=== PATIENT | male | born 1980 | race Caucasian/White ===

== ENCOUNTER → 2018-03-16 06:40 | Outpatient (CLI) | payer BC, SELFPAY ==
--- NOTE | 2018-03-16 10:24 | NEURO ---
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 reports symptoms began about 5 months ago without trigger. he is healthy without a history of diabetes or significant etoh intake. 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 left upper extremity motor and sensory nerve conduction study is performed demonstrating diffusely decreased amplitude of the ulnar motor response which is non-localizable with increased latency across the elbow but relatively preserved conduction velocities. The ulnar amplitude at the palm is reduced. The median motor and sensory and radial sensory responses are normal. The ulnar f wave latency is prolonged compared to the median F wave latency. Left upper extremity needle electromyography is performed. Muscles evaluated included the first dorsal interosseous, abductor pollicis brevis, adductor pollicis longus, extensor indices proprius, brachioradialis, biceps, triceps and deltoid muscles. The first dorsal interosseous muscle did demonstrate mild increase in insertional activity with 1+ fibrillation potentials and positive sharp waves and mild large amplitude. All other muscles demonstrated normal insertional activity with absence of pathologic spontaneous activity. Motor unit potential recruitment pattern and amplitude was otherwise normal. 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
--- NOTE | 2018-03-16 10:34 | NEURO_ITS ---
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 reports symptoms began about 5 months ago without trigger. he is h ealthy without a history of diabetes or significant etoh intake. 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 left upper extremity motor and sensory nerve conduction study is performed demonstrating diffusely decreased amplitude of the ulnar motor response which is non-localizable with increased latency across the elbow but relatively preserved conduction velocities. The ulnar amplitude at the palm is reduced. The median motor and sensory and radial sensory responses are normal. The ulnar f wave latency is prolonged compared to the median F wave latency. Left upper extremity needle electromyography is performed. Muscles evaluated included the first dorsal interosseous, abductor pollicis brevis, adductor pollicis longus, extensor indices proprius, brachioradialis, biceps, triceps and deltoid muscles. The first dorsal interosseous muscle did demonstrate mild increase in insertional activity with 1+ fibrillation potentials and positive sharp waves and mild large amplitude. All other muscles demonstrated normal insertional activity with absence of pathologic spontaneous activity. Motor unit potential recruitment pattern and amplitude was otherwise normal. 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
--- OUTSIDE RECORDS SUMMARY | 2018-05-02 02:13 | XMS RPT_ITS ---
:1980 Author Organization [facility] Care Team Providers Name Role Phone GIUSEPPE JUNG Attending Unavailable GIUSEPPE JUNG Referring Unavailable GIUSEPPE ALLISON MD Attending Unavailable GIUSEPPE ALLISON MD Attending Unavailable Sim Pacheco Attending Sim Du Referring Unavailable Sim Pacheco Primary Care Unavailable PROBLEMS PROBLEMS No Problem Records FoundPROCEDURES PROCEDURES No Procedure Records FoundRESULTS RESULTS NCS AND/OR EMG Observed: 03/16/2018 Status: F Source: [place] [facility] 10:38 AM [facility] [place] Pulmonary Services/Neurology [address] [place] [address] MR#: [id number] Acct: [id number] Name: MANUEL NGUYEN Rep #: [id number] : 1980 37 From: Jovan Chung MD Referring Dr: Sim Pacheco MD Status: REG CLI Ordering Dr: Date: Location: [facility] Sex: M C NCS and/or EMG Patient Report Ordering Doctor: Sim Pacheco DATE OF SERVICE: 03/16/18 this is a left upper extremity emg and ncv performed on this 37 year old male with paresthesias in his left 4th and 5th digits, 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 reports symptoms began about 5 months ago without trigger. he is healthy without a history of diabetes or significant etoh intake. 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 left upper extremity motor and sensory nerve conduction study is performed demonstrating diffusely decreased amplitude of the ulnar motor response which is non-localizable with increased latency across the elbow but relatively preserved conduction velocities. The ulnar amplitude at the palm is reduced. The median motor and sensory and radial sensory responses are normal. The ulnar f wave latency is prolonged compared to the median F wave latency. Left upper extremity needle electromyography is performed. Muscles evaluated included the first dorsal interosseous, abductor pollicis brevis, adductor pollicis longus, extensor indices proprius, brachioradialis, biceps, triceps and deltoid muscles. The first dorsal interosseous muscle did demonstrate mild increase in insertional activity with 1+ fibrillation potentials and positive sharp waves and mild large amplitude. All other muscles demonstrated normal insertional activity with absence of pathologic spontaneous activity. Motor unit potential recruitment pattern and amplitude was otherwise normal. 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 03/16/18 1038 <Electronically signed by Jovan Chung MD> Date Jovan Chung MD CC: Sim Pacheco MD; Jovan Chung MD Date Dictated: 03/16/18 1024 Date Transcribed: 03/16/18 1024 Whipper: NF Signed PROGRESS Observed: 05/12/2017 Status: COMPLETED Source: [place] 9:48 AM [facility] REPOSITORY HNO ID: [id number] Author: Giuseppe Jung Service: (none) Author Type: Physician Type: Progress Notes Filed: 05/12/2017 9:48 AM Note Text: Normal urinanalysis. Fax to PCP Giuseppe Jung MD URINALYSIS WITH Collected: 05/11/2017 Status: F Source: [facility] 12:00 PM [facility] REPOSITORY TYPE CODE TESTS RESULT OUT OF RANGE REFERENCE UNITS LAB UCOL Yellow Color Yellow LAB [facility] Clear Clarity Abnormal Cloudy Alert LAB UGLUC Negative mg/dL Glucose, Urine Negative LAB UBIL Negative Bilirubin, Urine Negative LAB UKET Negative Ketones, Urine Negative LAB USPG 1.005-1.030 Specific [place], Ur 1.021 LAB UHGB Negative Hemoglobin/Blood, Negative Ur LAB UPH 4.5-8.0 pH 7.0 LAB UPROT Negative mg/dL Protein, Urine Negative LAB UUROB Normal Urobilinogen Normal LAB UNITR Negative Nitrites Negative LAB ULKEST Negative Leukest Negative LAB UCOM Comments SEE COMMENT Result Comment: N/A LAB UMCOM Urine SEE [place] Comment COMMENT Result Comment: N/A LAB UWBC 0-5 /HPF WBC 0-5 LAB URBC 0-3 /HPF RBC 0-3 Performed By: #### UAWMIC #### [facility] [address] [place], [place] [address] CNOV Observed: 05/06/2017 Status: COMPLETED Source: [place] 8:00 AM [facility] REPOSITORY Office Visit (GSTCON) ALEXYGRETCHENMANUEL ([id number]) 1980 M Date Time Provider Department 05/06/17 8:00 AM GIUSEPPE JUNG During your visit today, we recorded the following information about you: Pulse Blood pressure Weight Height 59/minute 135/89 91.4 kg 1.88 m Giuseppe Jung MD 05/06/2017 8:31 AM Signed REASON FOR CONSULT: Rectal Bleeding; Abdominal Pain; and narrowing of stools REQUESTING PHYSICIAN: SELF Phone: N/A Fax: Assessment ASSESSMENT AND PLAN #1 change in caliber of stool #2 polyuria #3 history of anal fissure, status post internal sphincterotomy These patient's complaints are similar to those that occurred 4 years ago. His been asked to avoid using non-water soluble Vaseline. I have also asked him to increase his daily fiber and offered Metamucil. No clear anal fissure was identified on today's exam. I do not feel that a repeat evaluation is warranted this time, including a colonoscopy. In the event his symptoms do not improve, and this could be considered. Given the short term complaints, I suspect possibly a resolving gastroenteritis. If complaints persist. A colonoscopy and/or referral to colorectal surgery again may be needed. A urinalysis was ordered today. HPI: Mr. Nguyen is a 36 year old male who presents for Rectal Bleeding; Abdominal Pain; and narrowing of stools. The patient's traveling from [facility]. The beginning of April the patient noted increasing frequency of urination. Noted a change in the caliber stool where it was narrowed. Pictures were provided. He's also noted occasional blood in toilet paper. Moves his bowels typically once or twice per day. Has had no history of travel, new medications, or any specific meal that may have made him sick. There is no abdominal pain, nausea, vomiting. In 2013 after traumatic injury to his anus, the patient develop an anal fissure for which she eventually underwent sigmoidoscopy, colonoscopy, and surgery including internal sphincterotomy by colorectal surgery PAST MEDICAL HISTORY: PAST MEDICAL HISTORY Diagnosis Date - NEGATIVE MEDICAL HISTORY TB,PN,DM,CA,Heart Dis PAST SURGICAL HISTORY: PAST SURGICAL HISTORY Procedure Laterality Date - COLONOSCOPY 03/09/13 - SIGMOIDOSCOPY FLEX DIAG 10/30/2011 Sigmoidoscopy, flexible FAMILY HISTORY: FAMILY HISTORY Problem Relation Age of Onset - Heart Mother - None Father - Colon Cancer No Family History or colon polyps SOCIAL HISTORY: Social History Substance Use Topics - Smoking status: Never Smoker - Smokeless tobacco: Never Used - Alcohol use Yes Comment: socially MEDICATIONS: Psyllium Seed-Sucrose (METAMUCIL, SUGAR,) powd Take 1 Tablespoonful by mouth twice daily with meals. CURRENT ALLERGIES: Allergies As of Date: 05/06/2017 (No Known Allergies) Fully Assessed 05/06/2017 Review of Systems: Gastrointestinal: Negative for-nausea, vomiting, heartburn, food sticking in throat, painful swallowing, vomiting blood, black stool, red blood in stool, abdominal pain, constipation, loss of appetite, early satiety (feeling full fast) and bloating. Positive for-diarrhea. Constitutional: Negative for-recent weight gain, recent weight loss, fever and fatigue. Positive for-none. HEENT: Negative for-Sore throat and hoarseness. Positive for-none. Cardiovascular: Negative for-abnormal heart rhythm, chest pain and palpitations. Positive for-none. Respiratory: Negative for-cough, shortness of breath on exertion, shortness of breath at rest and wheezing. Positive for-none. Genitourinary: Negative for-kidney failure/dialysis and painful urination. Positive for-frequent urination. Neurological: Negative for-seizures and headaches. Positive for-none. Dermatology: Negative for-RASH. Positive for-none. Musculoskeletal: Negative for-joint pain and arthritis. Positive for-none. Psychiatric: Negative for-dementia, depression and anxiety. Positive for-none. Where do you currently reside? Independently Are you taking any blood thinners? No OBJECTIVE PHYSICAL EXAM: BP 135/89 Pulse 59 Ht 6' 2ANDquot; (1.88m) Wt 201 lb 9.6 oz (91.4kg) BMI 25.87 kg/(m2). General appearance: well appearing, alert, in no acute distress, well-hydrated, well nourished HEENT: Anicteric, mucous membranes moist Skin: Skin color, texture, turgor normal Neck: Supple Lungs: lungs clear to auscultation, no wheezing or rhonchi Heart: RRR without murmur, gallop, or rubs. No ectopy Abdomen: Normal abdominal exam, Abdomen soft, non-tender. Bowel sounds normal. No masses, organomegaly Rectal exam: No clear fissures, hemorrhoids. Digital exam normal Extremities: Edema, none Musculoskeletal: Good range of motion Neuro: Gait normal. DATA: Diagnostic tests reviewed for today's visit: As above Attending Note: I have personally performed a face to face assessment of this Patient, which included an interview, physical exam and Assessment and Plan. I have reviewed and confirmed the history and lindsey findings as documented by the Supervisor Delivery Department and edited as appropriate. Signature: John Jung MD Date: 05/06/2017 Time: 7:33 AM Referring Provider: SELF [200] Allergies As of Date: 05/06/2017 (No Known Allergies) Date Reviewed: 05/06/2017 Reviewed by: Giuseppe Jung - Fully Assessed Reason for Visit: Rectal Bleeding [202] Abdominal Pain [1] narrowing of stools [Other] Primary Visit Diagnosis:Fissure, anal [K60.2] Other Visit Diagnosis:Polyuria [R35.8] Order(s):CONSULT TO COLO-RECTAL SURGERY [] Order #: [id number]: 1 Psyllium Seed-Sucrose (METAMUCIL, SUGAR,) powdTake 1 Tablespoonful by mouth twice daily with meals.Disp: Rfl: 0 UA DIP W/MICRO B/O [0351208] Order #: [id number] Prescriptions as of 05/06/2017 Sig: PSYLLIUM SEED (SUGAR) ORAL PO* Take 1 Tablespoonful by mouth* Medication notes this encounter NITROGLYCERIN 0.4 % (W/W) RECTAL OINTMENT >> Yousuf Monsalve MA 05/06/2017 7:31 AM >> YOUSUF MONSALVE MA May 06, 2017 7:31 AM Not using Problem List As Of Date 05/06/2017 Noted Resolved Abdominal pain, unspecified site [R10.9] INVALID FOR* Suprapubic pain [R10.2] INVALID FOR* Urgency of urination [R39.15] INVALID FOR* Frequency of urination [R35.0] INVALID FOR* Fissure, anal [K60.2] INVALID FOR* Fertility testing [Z31.41] INVALID FOR* Procreative management [Z31.9] INVALID FOR* Prescriptions ordered this encounter Disp Refills Start End PSYLLIUM SEED (SUGAR) ORAL POWDER 0 05/06/2017 Class: Med Update Route: ORAL Sig: Take 1 Tablespoonful by mouth twice daily with meals. Medications Discontinued During This Encounter nitroglycerin (RECTIV) 0.4 % (w/w) o* 1 Tu* 1 03/15/2013 05/06/2017 Sig: Use 1/2 pea size dose of ointment to affected area (anal fissure) twice daily Disc: Erroneous entry Cosign accepted by SILVINA WOODS MD[[id number]] on 04/20/2013 7:21 AM Disposition: Return if symptoms worsen or fail to improve. Follow-up and Disposition History Recorded Letter Text Encounter Status:Closed by GIUSEPPE JUNG MD on 05/06/17 PROGRESS Observed: 05/06/2017 Status: COMPLETED Source: [place] 7:[address] [facility] REPOSITORY O ID: [id number] Author: Giuseppe Jung Service: (none) Author Type: Physician Type: Progress Notes Filed: 05/06/2017 8:31 AM Note Text: REASON FOR CONSULT: Rectal Bleeding; Abdominal Pain; and narrowing of stools REQUESTING PHYSICIAN: SELF Phone: N/A Fax: Assessment ASSESSMENT AND PLAN #1 change in caliber of stool #2 polyuria #3 history of anal fissure, status post internal sphincterotomy These patient's complaints are similar to those that occurred 4 years ago. His been asked to avoid using non-water soluble Vaseline. I have also asked him to increase his daily fiber and offered Metamucil. No clear anal fissure was identified on today's exam. I do not feel that a repeat evaluation is warranted this time, including a colonoscopy. In the event his symptoms do not improve, and this could be considered. Given the short term complaints, I suspect possibly a resolving gastroenteritis. If complaints persist. A colonoscopy and/or referral to colorectal surgery again may be needed. A urinalysis was ordered today. HPI: Mr. Nguyen is a 36 year old male who presents for Rectal Bleeding; Abdominal Pain; and narrowing of stools. The patient's traveling from [facility]. The beginning of April the patient noted increasing frequency of urination. Noted a change in the caliber stool where it was narrowed. Pictures were provided. He's also noted occasional blood in toilet paper. Moves his bowels typically once or twice per day. Has had no history of travel, new medications, or any specific meal that may have made him sick. There is no abdominal pain, nausea, vomiting. In 2013 after traumatic injury to his anus, the patient develop an anal fissure for which she eventually underwent sigmoidoscopy, colonoscopy, and surgery including internal sphincterotomy by colorectal surgery PAST MEDICAL HISTORY: PAST MEDICAL HISTORY Diagnosis Date - NEGATIVE MEDICAL HISTORY TB,PN,DM,CA,Heart Dis PAST SURGICAL HISTORY: PAST SURGICAL HISTORY Procedure Laterality Date - COLONOSCOPY 03/09/13 - SIGMOIDOSCOPY FLEX DIAG 10/30/2011 Sigmoidoscopy, flexible FAMILY HISTORY: FAMILY HISTORY Problem Relation Age of Onset - Heart Mother - None Father - Colon Cancer No Family History or colon polyps SOCIAL HISTORY: Social History Substance Use Topics - Smoking status: Never Smoker - Smokeless tobacco: Never Used - Alcohol use Yes Comment: socially MEDICATIONS: Psyllium Seed-Sucrose (METAMUCIL, SUGAR,) powd Take 1 Tablespoonful by mouth twice daily with meals. CURRENT ALLERGIES: Allergies As of Date: 05/06/2017 (No Known Allergies) Fully Assessed 05/06/2017 Review of Systems: Gastrointestinal: Negative for-nausea, vomiting, heartburn, food sticking in throat, painful swallowing, vomiting blood, black stool, red blood in stool, abdominal pain, constipation, loss of appetite, early satiety (feeling full fast) and bloating. Positive for-diarrhea. Constitutional: Negative for-recent weight gain, recent weight loss, fever and fatigue. Positive for-none. HEENT: Negative for-Sore throat and hoarseness. Positive for-none. Cardiovascular: Negative for-abnormal heart rhythm, chest pain and palpitations. Positive for-none. Respiratory: Negative for-cough, shortness of breath on exertion, shortness of breath at rest and wheezing. Positive for-none. Genitourinary: Negative for-kidney failure/dialysis and painful urination. Positive for-frequent urination. Neurological: Negative for-seizures and headaches. Positive for-none. Dermatology: Negative for-RASH. Positive for-none. Musculoskeletal: Negative for-joint pain and arthritis. Positive for-none. Psychiatric: Negative for-dementia, depression and anxiety. Positive for-none. Where do you currently reside? Independently Are you taking any blood thinners? No OBJECTIVE PHYSICAL EXAM: BP 135/89 Pulse 59 Ht 6' 2 (1.88m) Wt 201 lb 9.6 oz (91.4kg) BMI 25.87 kg/(m2). General appearance: well appearing, alert, in no acute distress, well-hydrated, well nourished HEENT: Anicteric, mucous membranes moist Skin: Skin color, texture, turgor normal Neck: Supple Lungs: lungs clear to auscultation, no wheezing or rhonchi Heart: RRR without murmur, gallop, or rubs. No ectopy Abdomen: Normal abdominal exam, Abdomen soft, non-tender. Bowel sounds normal. No masses, organomegaly Rectal exam: No clear fissures, hemorrhoids. Digital exam normal Extremities: Edema, none Musculoskeletal: Good range of motion Neuro: Gait normal. DATA: Diagnostic tests reviewed for today's visit: As above Attending Note: I have personally performed a face to face assessment of this Patient, which included an interview, physical exam and Assessment and Plan. I have reviewed and confirmed the history and lindsey findings as documented by the Supervisor Delivery Department and edited as appropriate. Signature: John Jung MD Date: 05/06/2017 Time: 7:33 AM ALLERGIES ALLERGIES DATE TYPE / CODE NAME / CODE REACTION SEVERITY SOURCE 10/28/2014 Drug No Known Unknown [facility] Allergy/416 Allergies/[id number] [facility] 165075(SNOM 0388(RXNORM) Repository ED CT) Drug NO KNOWN [facility] Class/16337 ALLERGIES [address] [place] 1003(SNOMED Repository CT) ENCOUNTERS ENCOUNTERS ADMIT/DISCHARGE ACCOUNT NUMBER ADMITTING ENCOUNTER LOCATION SOURCE CLASS 04/11/2018 [id number] Ambulatory BBuilding:OP [facility] Repository 04/11/2018 [id number] Ambulatory BBuilding:OS [facility] Repository 03/16/2018 [id number] Ambulatory [facility] ding:PSN Repository 05/11/2017/05/11/19 [id number] Ambulatory [address] Repository 05/06/2017/05/06/19 [id number] Ambulatory [address] Repository PAYERS PAYERS ENCOUNTER GUARANTOR PAYER SUBSCRIBER SOURCE 03/16/2018 MANUEL Pop Primary MANUEL [id number] Insurance:ANTHEMPolic ROUCHDOB: [facility] [place]: [id number] [id number] Repository [address]Hmf: [phone] louis Date:[id number] [phone] () [address], [place] [address]AP: 03/16/2018 [facility]LF [facility] Number: Effective Repository Date:2017-12-20
== END ==
PROVIDERS: Family Provider Family Medicine; PCP Family Medicine; Referring Provider Family Medicine; Visit Provider Family Medicine
DX: G56.02 Carpal tunnel syndrome, left upper limb (principal)
CPT/HCPCS: 95886; 95910

== ENCOUNTER 2018-06-16 18:30 | Outpatient (RCR) | payer BC, SELFPAY ==
--- NOTE | 2018-05-18 08:02 | HP.PTEVAL ---
Patient's Visit Information MANUEL RING is a 37 year old M referred to Physical Therapy by SALLY Forman with a diagnosis of L unlar nerve lesion. Date of Evaluation: 05/18/18 Physical Therapist: Ayad Barraza PT, ATC - Visit Plan Frequency: 2x /Week Duration: 4 Weeks Plan: L wrist stretching and strengthening, DTR, scar message, and HEP - Subjective Findings: DOS: Pt reports he had surgery at the end of April of 2017 for an Ulnar nerve release. Pt reports he began to notice numbness in his L hand on the lateral 2 digits back in July of 2017. Pt reports this instance had an insidious onset. Pt reports the numbness has decreased as he is able to feel this ring finger now, but his pinky is still numb. Pt reports he also has had difficulty with gripping objects with his L hand as he has continually become more weak. 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 Pt reports he still feels the same since having his surgery. Pt reports he was in a plastic cast for 2 weeks after the surgery. Pt is under no limitations at this time other than to stop performing an activity if he experiences pain. Pt is R hand dominant. No sleep difficulty at this time secondary to pain. Pt is not limited with his normal daily acitivity. No pain this date. - Pain L elbow Pain Intensity (Out of 10): 0 Pain Intensity Range: 3 Comment: Pain only when he touches it - Objective aNeuro: B UE is WNL to light touch. B bicepital reflex= 2/3. Observation: Incision has healed well. No signs of infection. ROM: R wrist flex= 45, ext= 65; L wrist flex= 40, ext= 65 degrees. Fire Prevention Officer strength: R hand= 80 #/force, L hand= 65 #/force - Goals Goal 1:: Decrease L elbow pain x 50% to aid with IADL's Goal Time Frame: 4-6 Weeks Goal 2:: Increase L director of physical education strength x 10 pounds to aid with IADL's Goal Time Frame: 4-6 Weeks Goal 3:: I with HEP Goal Time Frame: 4-6 Weeks - Rehabilitation Potential Physical Therapy Diagnosis: Pt has L hand weakness and L elbow pain secondary to L ulnar nerve lesion Rehabilitation Potential: Good - Anticipated Interventions Patient/Client Instruction: Educate patient on: Condition, Plan of Care For the Purpose of:: To improve self management Therapeutic Exercise to Include: Strength training, Endurance training, Flexibilty training, Active ROM For the Purpose of:: To decrease pain, To increase ROM, To improve muscle performance and motor function Cryotherapy (ice pack, ice massage): Yes For the Purpose of:: To decrease pain Thank you for the opportunity to evaluate your patient. For Medicare and Medicare HMO plans, please review the plan of care and approve it. It will need to be FAXED BACK to us at [phone] for Medicare purposes. For Medicare only, by signing this I certify the plan of care. Please let me know if there are questions or concerns regarding this plan of care. Physician Signature: Date:
--- NOTE | 2018-06-16 18:58 | HP.PTDCSUM_ITS ---
HP - PT D/C Summary It has been my pleasure to treat MANUEL RING under orders from SALLY Forman, for the diagnosis of L unlar nerve lesion for a total of 8 visit(s). Discharge Date: Please see the following information for a summary of their discharge status. - Subjective Subjective: Pt reports he only hurts when he bangs his elbow - Pain L elbow Pain Intensity (Out of 10): 0 - Overall Improvement % Improvement: 100 - Objective Objective/Function: L elbow pain 0/10. 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 Thank you for the referral of this patient. Sincerely, Ayad Barraza, PT, ATC
== END 2018-06-16 19:00 | disposition home or self-care (01) ==
LOC: PT 18:30
PROVIDERS: Family Provider Family Medicine; PCP Family Medicine; Referring Provider Physician Assistant Surgical; Visit Provider Physician Assistant Surgical
DX: G56.22 Lesion of ulnar nerve, left upper limb (principal)
CPT/HCPCS: 97110; 97140; 97161; 97530

== ENCOUNTER 2019-03-29 12:23 | Emergency (ER) | payer BC, SELFPAY ==
[2019-03-29 12:24] VITALS: BP 141/75; PULSE 83; RESP 16; TEMP 36.3; BMI 25.7
--- NOTE | 2019-03-29 13:14 | ED.DCSUM_ITS ---
- ER Visit Summary Date of Service: 03/29/19 Chief Complaint: Abdominal pain History of Present Illness: The patient is a 38 M who presents with abdominal pain that began again today. Patient states the pain began suddenly when he woke up. Patient states the pain is aching. Patient states pain is diffuse across his abdomen. Patient states he had watery diarrhea today. Patient denies any melena or hematochezia. Patient states the pain gets better with burping. Patient states nothing makes it worse. Patient admits to nausea but denies any vomiting. Patient denies any hematemesis or coffee-ground emesis. Patient denies any dysuria or hematuria. Patient states she has had multiple episodes of this over the past 3 weeks. Patient states he is scheduled to see a word processing specialist on April 12. Physical Examination: Vital signs are stable. Patient is afebrile. Patient is in no acute distress. Oral mucosa is pink and moist. Neck is supple. Trachea is midline. There is no JVD. Heart was regular rate and rhythm. Lungs are clear and equal bilaterally. Abdomen is soft. Bowel sounds are normal. There is diffuse tenderness. There is no rebound or guarding noted. Cranial nerves II through XII are intact. There are no focal motor or sensory deficits noted. Skin is warm and dry. There is no rash noted. Test Results: CBC, comprehensive metabolic profile, and lipase were obtained and were all within normal limits. Emergency Department Course and Treatment: Patient was given Zofran and a GI cocktail here. Patient felt better on reevaluation. Patient was given a prescription for Prilosec. Patient was instructed to follow-up with his primary care physician and word processing specialist as scheduled. Patient understood and was agreeable with the plan. All questions were answered. Disposition: Discharge home Impression: 1. Gastroesophageal reflux disease 2. Diarrhea This note was generated with [employer] dictation software. It may contain incorrect words, spelling, and punctuation that were not noted in review of the chart prior to signing ED Disposition - Plan for ED Patient: Disposition: Home or Assisted Living Diagnosis: GERD (gastroesophageal reflux disease), Diarrhea Instructions: GERD (Adult), DIARRHEA, Viral (Child) (Adult) Prescriptions: Omeprazole [Prilosec] 20 mg PO DAILY #30 cap Prescription Printed Referrals: Sim Pacheco MD [STAFF PHYSICIAN] - 5-7 Days
[2019-03-29] MEDS: Mag Hydrox/Al Hydrox/Simeth 30 ML UDC PO (13:26)
[2019-03-29] MEDS: Ondansetron 4 MG/2 ML Vial IV (13:26)
[2019-03-29 13:29] VITALS: RESP 18; O2SAT 97
[2019-03-29 13:29] LABS: Absolute Lymphocyte Count 0.85 X10^3/uL (0.83-4.51); Absolute Neutrophil Count 8.9 X10^3/uL (2.0-7.7); Basophil# 0.02 X10^3/uL; Basophil% 0.2 % (0-1); Eosinophil# 0.07 X10^3/uL; Eosinophils% 0.7 % (0-5); Hematocrit 46.3 % (40-54); Hemoglobin 14.7 g/dL (13.0-16.5); Lymphocyte # 0.85 X10^3/ul (4.0); Lymphocyte % 8.2 % (19-41); Mean Corp Hgb Conc 31.7 g/dL (32-36); Mean Corpuscular Hgb 26.7 pg (27.0-32.0); Mean Platelet Vol. 9.5 fl (6.2-12.0); Monocyte# 0.54 X10^3/uL; Monocyte% 5.2 % (0-10); NRBC Flagged by Analyzer 0 % (0-5); Neutrophil # 8.85 X10^3/uL (2.7-7.7); Neutrophil % 85.3 % (47-70); Platelet Count 221 K/mm3 (150-450); RBC Distribution Width CV 13.2 % (11.6-14.6); Red Blood Count 5.51 M/mm3 (4.6-6.2); White Blood Count 10.4 K/mm3 (4.4-11.0)
[2019-03-29 13:44] LABS: ALB/GLOB Ratio 1.1 RATIO (0.9-2.4); AST(SGOT) 21 U/L (15-37); Alanine Aminotransfer ALT/SGPT 41 U/L (16-61); Albumin, Serum 3.8 g/dL (3.2-5.0); Alkaline Phosphatase 99 U/L (45-117); Anion Gap 5 (5-15); BUN 19 mg/dL (7-18); BUN/Creat Ratio 19.3 RATIO (10-20); Calcium,Total 9.1 mg/dL (8.5-10.1); Chloride 105 mmol/L (98-107); Creatinine, Serum 0.98 mg/dL (0.70-1.30); EST Glomerular Filtration Rate 91 mL/min (>60); Est Glom Filt Rate - Afr Amer 110 mL/min (>60); Estimated Creatinine Clearance 118.83 ml/min; Globulin 3.5 g/dL (2.2-4.2); Glucose 91 mg/dL (74-106); Lipase 119 U/L (73-393); Potassium 4.1 mmol/L (3.5-5.1); Protein, Total 7.3 g/dL (6.4-8.2); Sodium Level 139 mmol/L (136-145)
[2019-03-29 14:24] VITALS: BP 134/66; PULSE 59; RESP 17; O2SAT 98
== END 2019-03-29 14:25 | disposition home or self-care (01) ==
PROVIDERS: Emergency Provider Emergency Medicine
DX: K21.9 Gastro-esophageal reflux disease without esophagitis (principal); R19.7 Diarrhea, unspecified; J02.9 Acute pharyngitis, unspecified
CPT/HCPCS: 80053; 83690; 85025; 94760; 96374; 99284; J2405

== ENCOUNTER 2020-05-20 11:41 | Emergency (ER) | payer BC, SELFPAY ==
[2020-05-20 11:42] VITALS: BP 158/43; PULSE 53; RESP 16; TEMP 35.2; O2SAT 99; BMI 26.5
[2020-05-20 11:49] VITALS: BP 138/85; PULSE 53; RESP 15; O2SAT 99
--- NOTE | 2020-05-20 11:56 | EKG12_ITS ---
Test Reason : CP Blood Pressure : / mmHG Vent. Rate : 053 BPM Atrial Rate : 053 BPM P-R Int : 132 ms QRS Dur : 096 ms QT Int : 430 ms P-R-T Axes : 045 045 025 degrees QTc Int : 403 ms Sinus bradycardia with sinus arrhythmia Otherwise normal ECG Confirmed by JOEL DIANE, OLIVIA ([id number]), copy editor ROSEY CRUZ ([id number]) on 05/23/2020 1:34:11 PM Referred By: ADÁN Confirmed By:OLIVIA MALDONADO MD
--- NOTE | 2020-05-20 11:57 | ED.DCSUM_ITS ---
History of Present Illness Chief Complaint: Chest Pain Informant: Patient Narrative: 39-year-old male with no significant medical history presenting with chest pain. He states that started on Wednesday and has had intermittent episodes of palpitations. He denies lightheadedness or dizziness. He denies cough, fever, shortness of breath. Patient denies history of DVT/PE. Past Medical History - Allergies and Home Meds Allergies/Adverse Reactions: Allergies No Known Allergies Allergy (Verified 05/20/20 11:43) Primary Care Physician: Sim Pacheco MD [Primary Care Provider] - Prior records reviewed: Yes Past Medical History: - - She denies any significant medical history Surgical History: noncontributory Lives: Spouse/ Significant Other Smoking Status: Never smoker Alcohol: None Drugs: None Review of Systems General: Denies: Chills, Fever, Sweats Eyes: Denies: Visual changes - bilaterally, Diplopia ENT: Denies: Rhinorrhea, Sore throat Cardiovascular: Reports: Chest pain, Palpitations Respiratory: Denies: Dyspnea, Cough, Dyspnea on exertion Gastrointestinal: Denies: Abdominal pain, Nausea, Vomiting, Diarrhea, Melena, Hematochezia Genitourinary: Denies: Dysuria, Hematuria, Frequency Musculoskeletal: Denies: Back pain, Extremity Pain Skin: Denies: Rash, Wounds Neurological: Denies: Headache, Weakness, Numbness Psych: Denies: Depression, Anxiety Physical Exam Vital Signs/Narrative: Vital Signs Temp Pulse Resp BP Pulse Ox 05/20/20 11:49 53 L 15 138/85 H 99 05/20/20 11:42 95.3 F L 53 L 16 158/43 H 99 Inital Vital Signs reviewed: Yes General: Well nourished, No Acute Distress Head: Normocephalic, Atraumatic Eyes: Perrl, EOMI ENT: Moist mucous membranes, No rhinorrhea Cardiovascular: Regular rate, Regular rhythm, No murmurs Respiratory: No distress, CTA bilaterally Extremities: Nontender, No edema Skin: Normal color, No rash. Negative for: Cyanosis, Diaphoresis Neurological: Alert, Oriented x3, Cranial nerves II-XII grossly intact Psychological: Normal affect, Normal Mood Diagnostic/Tx/Re-eval - Rhythm Strip Rhythm Strip: Sinus Rhythm - EKG Initial EKG Interpretation: No Acute Injury Pattern, Sinus Bradycardia - Medical Decision Making 39-year-old male with no medical problems presenting with chest pain which has been present since Wednesday. He states he gets intermittent palpitations as well. He said it felt like his heart was pounding last night. Now he states it feels achy. Patient is PERC negative. EKG performed on arrival shows a sinus rhythm at 53 bpm without signs of ischemic change as interpreted by myself. Chest x- ray showed no acute cardiopulmonary process as interpreted by myself. Radiology does agree. Patient's lab work is unremarkable. Troponin is negative after chest pain all night so I do not believe he needs a delta troponin or EKG. Patient's heart score is 0. I believe patient is safe to be discharged home with follow-up with his primary care physician. Impression: 1. Chest pain ED Disposition - Plan for ED Patient: Disposition: Home or Assisted Living Instructions: ED Chest Pain, Uncertain Cause Referrals: Sim Pacheco MD [Primary Care Provider] -
--- NOTE | 2020-05-20 12:10 | RAD_ITS ---
STUDY: X-RAY CHEST REASON FOR EXAM: Male, 39 years old. Chest pain for weeks, worse today TECHNIQUE: Single AP portable view of the chest. COMPARISON: None. FINDINGS: EKG electrodes are seen. The lungs are clear and expanded. There is no demonstrated pleural abnormality. Normal size heart. Normal mediastinum and benjamin. Normal visualized pulmonary arteries. Normal visualized aortic arch and descending thoracic aorta. Normal visualized thoracic spine. Normal visualized ribs, clavicles, and shoulders. There is no demonstrated abnormality of the visualized soft tissue structures of the upper abdomen. RAD/Chest 1 View (Portable) IMPRESSION: Normal x-ray examination of the chest. Electronically Signed: Joseph Garcia MD at 12:37 EST , Service support ,
[2020-05-20 12:14] LABS: Absolute Lymphocyte Count 1.86 X10^3/uL (0.83-4.51); Absolute Neutrophil Count 3.8 X10^3/uL (2.0-7.7); Basophil# 0.03 X10^3/uL; Basophil% 0.5 % (0-1); Eosinophil# 0.04 X10^3/uL; Eosinophils% 0.6 % (0-5); Hematocrit 43.2 % (40-54); Hemoglobin 13.7 g/dL (13.0-16.5); Lymphocyte # 1.86 X10^3/ul (4.0); Mean Corp Hgb Conc 31.7 g/dL (32-36); Mean Corpuscular Hgb 26.8 pg (27.0-32.0); Mean Corpuscular Volume 84.4 fL (80-94); Mean Platelet Vol. 9.6 fl (6.2-12.0); Monocyte# 0.43 X10^3/uL; Monocyte% 6.9 % (0-10); NRBC Flagged by Analyzer 0 % (0-5); Neutrophil # 3.82 X10^3/uL (2.7-7.7); Neutrophil % 61.8 % (47-70); Platelet Count 245 K/mm3 (150-450); RBC Distribution Width SD 40.2 fl (35.1-43.9); Red Blood Count 5.12 M/mm3 (4.6-6.2); White Blood Count 6.2 K/mm3 (4.4-11.0)
[2020-05-20 12:33] LABS: Anion Gap 4 (5-15); BUN 19 mg/dL (7-18); BUN/Creat Ratio 19.4 RATIO (10-20); Chloride 108 mmol/L (98-107); Creatinine, Serum 0.98 mg/dL (0.70-1.30); EST Glomerular Filtration Rate 91 mL/min (>60); Est Glom Filt Rate - Afr Amer 110 mL/min (>60); Estimated Creatinine Clearance 117.66 ml/min; Glucose 92 mg/dL (74-106); Sodium Level 140 mmol/L (136-145)
[2020-05-20] MEDS: Aspirin 81 MG TAB.CHEW 324 MG PO (12:46)
[2020-05-20 12:47] VITALS: BP 133/87; PULSE 63; RESP 20; O2SAT 95
[2020-05-20 13:32] VITALS: BP 122/78; PULSE 48; RESP 17; O2SAT 98
[2020-05-20 13:58] VITALS: BP 122/78; PULSE 54; RESP 16; O2SAT 97
== END 2020-05-20 13:59 | disposition home or self-care (01) ==
PROVIDERS: Emergency Provider Student in an Organized Health Care Education/Training Program; PCP Family Medicine
DX: R07.9 Chest pain, unspecified (principal); R00.2 Palpitations
CPT/HCPCS: 71045; 80048; 84484; 85025; 93005; 99285; A4216

== ENCOUNTER → 2020-05-28 12:00 | Outpatient (CLI) | payer BC, SELFPAY ==
[2020-05-20 11:42] VITALS: BMI 26.5
[2020-05-28 15:58] LABS: Magnesium 2.3 mg/dL (1.6-2.6); Thyroid Stim Hormone (TSH) 1.99 uIU/mL (0.358-3.74)
== END ==
PROVIDERS: PCP Family Medicine; Referring Provider Family Medicine; Visit Provider Family Medicine
DX: R00.2 Palpitations (principal)
CPT/HCPCS: 36415; 83735; 84443

== ENCOUNTER → 2020-07-03 | Outpatient (CLI) | payer BC, SELFPAY | END | disposition home or self-care (01) | LOC: MFPLAB 13:40 → LABSPEC 13:41 | PROVIDERS: PCP Family Medicine; Referring Provider Family Medicine; Visit Provider Family Medicine | DX: B34.9 Viral infection, unspecified (principal) | CPT/HCPCS: 87635; U0002 ==

== ENCOUNTER 2021-08-11 19:24 | Emergency (ER) | payer BC, SELFPAY ==
[2021-08-11 19:25] VITALS: BP 136/81; PULSE 70; RESP 16; TEMP 36.2; O2SAT 98; BMI 25.7
[2021-08-11 20:17] VITALS: BP 124/83; PULSE 64
[2021-08-11 21:00] VITALS: BP 135/88; PULSE 65
--- NOTE | 2021-08-11 21:24 | ED.VIS.CHEST ---
HPI History of Present Illness Chief Complaint: Chest Pain Informant: patient Onset/Context/Timing Onset: Days (4) Activity at onset: gradual Timing: Continuous and Waxes and wanes Quality: Positive for Tightness Location: Left Chest Worsened By: Eating Relieved By: Nothing Associated Symptoms: Positive for Acid Reflux and Palpitations; Negative for Nausea, Vomiting, Diaphoresis, Dyspnea, Cough, Fever and Lightheadedness Narrative Narrative: Patient presents with chest pain that has been constant over the last 4 days. Patient states it has been waxing and waning. Patient describes as a tightness. Patient states it is over the left upper chest and radiates into his jaw and neck. Patient states it is worse with eating. Patient states nothing makes it better. Patient admits to some reflux symptoms as well as some palpitations. Patient denies any shortness of breath or cough. Patient denies any nausea or vomiting. Patient denies any diaphoresis. CVD Risk Factors: Negative for Hypertension, Diabetes, Hypercholesterolemia, Family History 1' </=55 and Smoking PE Risk Factors: Negative for Recent Travel/Surgery, Recent Immobilization, Prior DVT or PE, Cancer and OCP + Smoking + >/=35 PFSH PFSH Medical History no medical history no medical history Home Medications omeprazole 20 mg PO DAILY #30 capsule 08/11/21 [Rx Last Taken Unknown] Allergy/AdvReac Type Severity Reaction Status Date / Time No Known Allergies Allergy Verified 08/11/21 19:26 Social History Smoking Status: Never smoker ROS [facility] ED Constitutional Constitutional ED: Denies chills or fever(s) Eyes Eyes: Denies blurry vision or change in vision ENT ENT ED: Denies rhinorrhea or sore throat Cardiovascular Cardiovascular: Reports chest pain and palpitations Respiratory/Chest Respiratory/Chest: Denies cough or dyspnea Gastrointestinal Gastrointestinal: Denies abdominal pain, nausea or vomiting Genitourinary Genitourinary ED: Denies dysuria or hematuria Musculoskeletal Musculoskeletal: Reports neck pain; Denies back pain Integumentary Denies abscess or rash Neurologic Neurologic: Denies headache(s) or weakness Allergic/Immunologic Allergic/Immunologic ED: Denies mouth swelling or urticaria EXAM Physical Exam Const Vital Signs: 08/11/21 19:25 08/11/21 20:17 08/11/21 21:00 Temperature 97.2 F L Temperature Source Temporal Pulse Rate 70 64 65 Respiratory Rate 16 Respiratory Effort Normal Blood Pressure 136/81 H 124/83 H 135/88 H Blood Pressure Mean 99 96 103 Pulse Ox 98 Oxygen Delivery Method Room Air 08/11/21 21:33 08/11/21 22:22 08/11/21 22:23 Temperature 98.0 F Temperature Source Oral Pulse Rate 64 61 Respiratory Rate 18 18 Respiratory Effort Blood Pressure 120/87 H 120/87 H Blood Pressure Mean 98 98 Pulse Ox 98 97 97 Oxygen Delivery Method Room Air Room Air Room Air Positive well nourished and well developed General Appearance ED: well developed and NAD HEENT normocephalic and atraumatic Eyes PERRL and EOMs intact bilaterally Neck supple and no JVD Chest Wall palpation of chest normal Resp normal respiratory effort and clear to auscultation bilaterally Effort and Inspection: Negative for respiratory distress Cardio regular rate, regular rhythm and no murmurs GI normal to inspection, nondistended, normoactive bowel sounds, soft to palpation, non-tender and non-distended Extremity normal to inspection General Extremety ED: Negative for edema or tenderness General Extremity: Negative for edema Neuro oriented x3, CN's II-XII intact bilaterally and no sensory deficits noted Sensorium / Orientation: awake and alert Motor Exam: strength 5/5 throughout Psych mental status grossly normal Heart Score History: Moderately Suspicious ECG: Normal Age: </= 45 years Risk Factors: No Risk Factors Troponin: </= Normal Limit Score: 1 MDM MDM MDM Narrative Medical decision making narrative: Patient was given aspirin. EKG was obtained. On my interpretation, it showed a normal sinus rhythm with a rate of 65. DC interval, QRS interval, and QTc intervals were all normal. Cascilla was normal. There are no acute ST or T wave changes. Portable 1 view chest x-ray was obtained. On my interpretation, lung [place] are clear. There is normal cardiac silhouette. Bony thorax is normal. There is no acute process noted. Radiologist also interpreted the x-ray and agrees. CBC was within normal limits. Basic metabolic profile was within normal limits. High-sensitivity troponin was less than 3. Patient was given a GI cocktail here. Patient had improvement of his symptoms with this. Patient was given a prescription for Prilosec. Patient has a HEART score of 1. Patient was advised that this is low risk for acute cardiac event. Patient was instructed to follow-up with his primary care physician in 5 to 7 days. Patient understood and was agreeable with the plan. All questions were answered. Lab Data Attestation: I reviewed the patient's lab results. Labs: Laboratory Results - last 24 hr 08/11/21 08/11/21 21:05 21:29 WBC 8.7 RBC 5.00 Hgb 13.3 Hct 41.8 MCV 83.6 MCH 26.6 L MCHC 31.8 L RDW Std Deviation 41.5 RDW Coeff of Nadeen 13.6 Plt Count 244 MPV 9.4 Immature Gran % (Auto) 0.200 Neut % (Auto) 58.7 Lymph % (Auto) 31.7 [place] % (Auto) 7.7 Eos % (Auto) 1.1 Baso % (Auto) 0.6 Absolute Neuts (auto) 5.1 Absolute Lymphs (auto) 2.76 Nucleated RBC % 0 Sodium 141 Potassium 3.5 Chloride 108 H Carbon Dioxide 26.0 Anion Gap 7 BUN 15 Creatinine 0.86 Estim Creat Clear Calc 132.75 Est GFR (MDRD) Af Amer 126 Est GFR (MDRD) Non-Af 104 BUN/Creatinine Ratio 17.4 Glucose 86 Calcium 9.1 Troponin I High Sens < 3 L Radiography Chest X-Ray - ED: 1 View, Read by ED Physician, Read by Radiologist, Normal and No Acute Disease Diagnostic Testing: Clinical Impression(s) from Imaging Studies Chest X-Ray 08/11/21 21:46 IMPRESSION: Nonacute portable x-ray examination of the chest. Electronically Signed: Geovanni Garcia MD (Brooks) at 22:03 EDT Reading Location ID and State: [facility] / [place] , Service support , EKG Initial EKG: Attestation: I personally reviewed and interpreted this EKG as follows: Interpretation: Sinus Rhythm (65) and No Acute Injury Pattern Discharge Plan Triage Chief Complaint: Chest Pain ED Provider: Joaquín Vo Dx/Rx/DC Orders Clinical Impression: Chest pain, GERD (gastroesophageal reflux disease) Instructions: ED GERD (Adult) Prescriptions: New omeprazole [omeprazole] 20 MG capsule 20 mg PO DAILY Qty: 30 RF: 0 Primary Care Provider: Sim White Referrals: Sim White MD [Primary Care Provider] - 5-7 Days Disposition Disposition: Home, Self Care
--- NOTE | 2021-08-11 21:29 | EKG12_ITS ---
Test Reason : CP Blood Pressure : / mmHG Vent. Rate : 065 BPM Atrial Rate : 065 BPM P-R Int : 130 ms QRS Dur : 098 ms QT Int : 406 ms P-R-T Axes : 038 039 028 degrees QTc Int : 422 ms Normal sinus rhythm Normal ECG Confirmed by JOEL DIANE, OLIVIA ([id number]), videotape editor CAITLIN MIR ([id number]) on 08/13/2021 11:10:04 AM Referred By: LARRY Confirmed By:OLIVIA MALDONADO MD
[2021-08-11 21:33] VITALS: O2SAT 98
[2021-08-11 21:38] LABS: Absolute Lymphocyte Count 2.76 X10^3/uL (0.83-4.51); Absolute Neutrophil Count 5.1 X10^3/uL (2.0-7.7); Basophil# 0.05 X10^3/uL; Basophil% 0.6 % (0-1); Eosinophils% 1.1 % (0-5); Hematocrit 41.8 % (40-54); Hemoglobin 13.3 g/dL (13.0-16.5); Lymphocyte # 2.76 X10^3/ul (0.83-4.51); Lymphocyte % 31.7 % (19-41); Mean Corp Hgb Conc 31.8 g/dL (32-36); Mean Corpuscular Hgb 26.6 pg (27.0-32.0); Mean Corpuscular Volume 83.6 fL (80-94); Mean Platelet Vol. 9.4 fl (6.2-12.0); Monocyte# 0.67 X10^3/uL; Monocyte% 7.7 % (0-10); NRBC Flagged by Analyzer 0 % (0-5); Neutrophil # 5.12 X10^3/uL (2.7-7.7); Neutrophil % 58.7 % (47-70); Platelet Count 244 K/mm3 (150-450); RBC Distribution Width CV 13.6 % (11.6-14.6); RBC Distribution Width SD 41.5 fl (35.1-43.9); White Blood Count 8.7 K/mm3 (4.4-11.0)
[2021-08-11] MEDS: Aspirin 81 MG TAB.CHEW 324 MG PO (21:38)
[2021-08-11] MEDS: Mag Hydrox/Al Hydrox/Simeth 30 ML UDC PO (21:41)
--- NOTE | 2021-08-11 21:46 | RAD_ITS ---
STUDY: X-RAY CHEST REASON FOR EXAM: Male, 40 years old. chest pain TECHNIQUE: AP COMPARISON: None. FINDINGS: EKG leads project over the chest. The lungs are clear and expanded. There is no demonstrated pleural abnormality. Normal size heart. Normal mediastinum and benjamin. Normal visualized pulmonary arteries. Normal visualized aortic arch and descending thoracic aorta. Normal visualized thoracic spine. Normal visualized ribs, clavicles, and shoulders. There is no demonstrated abnormality of the visualized soft tissue structures of the upper abdomen. RAD/Chest 1 View (Portable) IMPRESSION: Nonacute portable x-ray examination of the chest. Electronically Signed: Geovanni Garcia MD (Brooks) at 22:03 EDT ,
[2021-08-11 22:01] LABS: Anion Gap 7 (5-15); BUN 15 mg/dL (7-18); BUN/Creat Ratio 17.4 RATIO (10-20); Calcium,Total 9.1 mg/dL (8.5-10.1); Chloride 108 mmol/L (98-107); Creatinine, Serum 0.86 mg/dL (0.70-1.30); EST Glomerular Filtration Rate 104 mL/min (>60); Est Glom Filt Rate - Afr Amer 126 mL/min (>60); Estimated Creatinine Clearance 132.75 ml/min; Glucose 86 mg/dL (74-106); Potassium 3.5 mmol/L (3.5-5.1); Sodium Level 141 mmol/L (136-145); Troponin-I HS (w/2H Reflex) < 3 pg/mL (3.0-78.0)
[2021-08-11 22:22] VITALS: BP 120/87; PULSE 64; RESP 18; O2SAT 97
[2021-08-11 22:23] VITALS: BP 120/87; PULSE 61; RESP 18; TEMP 36.7; O2SAT 97
[2021-08-11 23:35] LABS: Reflex Troponin-HS? (from REC) Y
== END 2021-08-11 23:47 | disposition home or self-care (01) ==
PROVIDERS: Emergency Provider Emergency Medicine; PCP Family Medicine; Visit Provider Emergency Medicine
DX: R07.9 Chest pain, unspecified (principal); K21.9 Gastro-esophageal reflux disease without esophagitis; R00.2 Palpitations; M54.2 Cervicalgia
CPT/HCPCS: 71045; 80048; 84484; 85025; 93005; 99285; A4216

== ENCOUNTER 2023-06-15 02:00 | Emergency (ER) | payer BC, SELFPAY ==
[2023-06-15 02:01] VITALS: BP 137/80; PULSE 79; RESP 12; TEMP 36.8; O2SAT 95; BMI 25.7
[2023-06-15 02:04] VITALS: BP 137/80; PULSE 79; RESP 12; TEMP 36.8; O2SAT 97
--- NOTE | 2023-06-15 02:25 | EDS_ITS ---
HPI History of Present Illness Chief Complaint: Nausea/Vomiting/Diarrhea Informant: patient Narrative Narrative: 42-year-old male presenting to the emergency room with nausea and diarrhea. Patient states since Wednesday has had a lot of gas burning epigastric pain he states he has been really unable to keep food down and he chokes on it/spits it up/vomits. He is scheduled for an EGD next week. No reported fevers. has been sick with strep throat recently. He takes omeprazole normally. He was unable to sleep tonight so he figured he should should be seen in the emergency department. He denies any chest pain or shortness of breath. He states he has recently had a negative colonoscopy. [facility] Medical History GERD (gastroesophageal reflux disease) Home Medications omeprazole 40 mg capsule,delayed release 40 mg PO DAILY 06/15/23 [History Last Taken 06/14/23 06:00] ondansetron 4 mg disintegrating tablet 4 mg PO Q6H PRN PRN Nausea #15 tabs 06/15/23 [Rx Last Taken Unknown] Allergy/AdvReac Type Severity Reaction Status Date / Time No Known Allergies Allergy Verified 06/15/23 02:04 Social History Smoking Status: Never smoker ROS ROS ED Constitutional Constitutional ED: Denies chills, fever(s) or weight loss Eyes Eyes: Denies change in vision or diplopia ENT ENT ED: Denies ear pain, rhinorrhea or sore throat Cardiovascular Cardiovascular: Denies chest pain, orthopnea, palpitations or racing heartbeat Respiratory/Chest Respiratory/Chest: Denies cough, dyspnea or orthopnea Gastrointestinal Gastrointestinal: Reports abdominal pain, diarrhea, nausea and vomiting Genitourinary Genitourinary ED: Denies dysuria, hematuria or urinary frequency Musculoskeletal Musculoskeletal: Denies arthralgias or myalgias Integumentary Denies abscess or rash Neurologic Neurologic: Denies headache(s) or weakness Psychiatric Psychiatric: Denies anxiety, depression, suicidal ideation or suicidal thoughts Endocrine Endocrinology: Denies polydipsia, polyphagia or polyuria Allergic/Immunologic Allergic/Immunologic ED: Denies mouth swelling, tongue swelling or urticaria EXAM Physical Exam Const Vital Signs: 06/15/23 02:01 06/15/23 02:04 06/15/23 03:04 Temperature 98.3 F 98.3 F 97.9 F Temperature Source Oral Oral Oral Pulse Rate 79 79 96 Respiratory Rate 12 12 18 Blood Pressure 137/80 H 137/80 H 136/77 H Blood Pressure Mean 99 99 96 Pulse Ox 95 97 97 Oxygen Delivery Method Room Air Room Air Room Air 06/15/23 04:04 Temperature 97.9 F Temperature Source Pulse Rate 86 Respiratory Rate 16 Blood Pressure 116/72 Blood Pressure Mean 86 Pulse Ox 99 Oxygen Delivery Method Positive well nourished and well developed General Appearance ED: well developed HEENT Reports normocephalic, head/scalp atraumatic and moist mucous membranes Eyes PERRL and EOMs intact bilaterally Neck no lymphadenopathy, supple and no JVD Resp normal respiratory effort and clear to auscultation bilaterally Cardio regular rate, regular rhythm and no murmurs GI normal to inspection, nondistended, normoactive bowel sounds and non-tender Palpation: soft Back/Spine no CVA tenderness and normal ROM Extremity normal to inspection General Extremety ED: Negative for edema General Extremity: Negative for edema Neuro oriented x3 and CN's II-XII intact bilaterally Sensorium / Orientation: alert Motor Exam: strength 5/5 throughout Psych mental status grossly normal Mood & Affect: Negative for depressed or tearful Skin no rashes or lesions noted and no wounds MDM MDM MDM Narrative Medical decision making narrative: IV established patient received IV fluids and a GI cocktail. Basic blood work showed a white count of 6.6 with no left shift hemoglobin of 13.8 platelet count of 207. Liver panel lipase BMP essentially normal. The patient most likely has a gastroenteritis complicated with underlying GERD. Would recommend that he continue his omeprazole and add in Mylanta as needed and I will write for Zofran . Advance diet as tolerated which I think should help him. He has his EGD next week. Differential includes but not limited to gastroenteritis pancreatitis C cholelithiasis/biliary colic peptic ulcer disease gastritis esophagitis perforated viscus electrolyte abnormalities viral illness History & Record Review Discussion w/independent historian: Patient Lab Data Attestation: I reviewed the patient's lab results. Labs: Laboratory Results - last 24 hr 06/15/23 02:35 WBC 6.6 RBC 5.43 Hgb 13.8 Hct 43.1 MCV 79.4 L MCH 25.4 L MCHC 32.0 RDW Std Deviation 40.3 RDW Coeff of Nadeen 14.0 Plt Count 207 MPV 8.8 Immature Gran % (Auto) 0.200 Neut % (Auto) 69.9 Lymph % (Auto) 19.8 [place] % (Auto) 9.0 Eos % (Auto) 0.5 Baso % (Auto) 0.6 Absolute Neuts (auto) 4.6 Absolute Lymphs (auto) 1.31 Nucleated RBC % 0 Sodium 139 Potassium 3.6 Chloride 109 H Carbon Dioxide 24.0 Anion Gap 6 BUN 16 Creatinine 0.84 Estim Creat Clear Calc 133.19 Est GFR (MDRD) Af Amer 129 Est GFR (MDRD) Non-Af 107 BUN/Creatinine Ratio 19.1 Glucose 106 Calcium 8.4 L Total Bilirubin 0.30 Direct Bilirubin 0.12 AST 20 ALT 29 Alkaline Phosphatase 85 Total Protein 6.5 Albumin 3.3 Globulin 3.2 Lipase 48 Discharge Plan Triage Chief Complaint: Nausea/Vomiting/Diarrhea ED Provider: Emigdio Anaya Dx/Rx/DC Orders Clinical Impression: Gastroenteritis, GERD (gastroesophageal reflux disease) Instructions: ED GERD (Adult), ED Gastroenteritis, Viral (Adult) Prescriptions: New ondansetron [ondansetron] 4 mg tablet,disintegrating 4 mg PO Q6H PRN PRN (Reason: Nausea) Qty: 15 0RF No Action omeprazole 40 mg capsule,delayed release(DR/EC) 40 mg PO DAILY Primary Care Provider: Sim White Referrals: Sim White MD [Primary Care Provider] - As Needed Disposition Disposition: Home, Self Care Discharge Date/Time: 06/15/23 04:07
[2023-06-15] MEDS: 0.9% Normal Saline (1000mL) 1,000 ML 1000 ML IV (02:33)
[2023-06-15] MEDS: Ondansetron 4 MG/2 ML Vial IV (02:34)
[2023-06-15] MEDS: Mag Hydrox/Al Hydrox/Simeth 30 ML UDC PO (02:34)
[2023-06-15 02:41] LABS: Absolute Lymphocyte Count 1.31 X10^3/uL (0.83-4.51); Absolute Neutrophil Count 4.6 X10^3/uL (2.0-7.7); Basophil# 0.04 X10^3/uL; Basophil% 0.6 % (0-1); Eosinophil# 0.03 X10^3/uL; Eosinophils% 0.5 % (0-5); Hematocrit 43.1 % (40-54); Hemoglobin 13.8 g/dL (13.0-16.5); Lymphocyte # 1.31 X10^3/ul (0.83-4.51); Lymphocyte % 19.8 % (19-41); Mean Corpuscular Hgb 25.4 pg (27.0-32.0); Mean Corpuscular Volume 79.4 fL (80-94); Mean Platelet Vol. 8.8 fl (6.2-12.0); NRBC Flagged by Analyzer 0 % (0-5); Neutrophil # 4.64 X10^3/uL (2.7-7.7); Neutrophil % 69.9 % (47-70); Platelet Count 207 K/mm3 (150-450); RBC Distribution Width SD 40.3 fl (35.1-43.9); Red Blood Count 5.43 M/mm3 (4.6-6.2); White Blood Count 6.6 K/mm3 (4.4-11.0)
[2023-06-15 03:04] VITALS: BP 136/77; PULSE 96; RESP 18; TEMP 36.6; O2SAT 97
[2023-06-15 03:09] LABS: AST(SGOT) 20 U/L (15-37); Alanine Aminotransfer ALT/SGPT 29 U/L (16-61); Albumin, Serum 3.3 g/dL (3.2-5.0); Alkaline Phosphatase 85 U/L (45-117); Anion Gap 6 (5-15); BUN 16 mg/dL (7-18); BUN/Creat Ratio 19.1 RATIO (10-20); Bilirubin, Direct 0.12 mg/dL (0.00-0.30); Calcium,Total 8.4 mg/dL (8.5-10.1); Chloride 109 mmol/L (98-107); Creatinine, Serum 0.84 mg/dL (0.70-1.30); EST Glomerular Filtration Rate 107 mL/min (>60); Est Glom Filt Rate - Afr Amer 129 mL/min (>60); Estimated Creatinine Clearance 133.19 ml/min; Globulin 3.2 g/dL (2.2-4.2); Glucose 106 mg/dL (74-106); Lipase 48 U/L (13-75); Potassium 3.6 mmol/L (3.5-5.1); Protein, Total 6.5 g/dL (6.4-8.2); Sodium Level 139 mmol/L (136-145)
--- OUTSIDE RECORDS SUMMARY | 2023-06-15 03:28 | XMS RPT_ITS | CCD ---
Author Name Unknown Address [address] [place] [address] Organization [facility] Care Team Providers Care Ostrich Farmer Name Role Phone LUIS ALLISON Unavailable Unavailable LUIS ALLISON Unavailable Unavailable Rudy Moran Primary Care Provider uRdy Moran MD Primary Care Provider [phone] Rudy Moran MD Primary Care Provider [phone] SONJA ACEVES Referring Unavailable RUDY MORAN Primary Care Unavailable Unavailable Primary Care Provider UnavailRudy Pearson MD Primary Care Provider [phone] RUDY MORAN Primary Care Unavailable ERI LLAMAS Referring Unavailable RUDY MORAN Primary Care Unavailable ERI LLAMAS Attending Unavailable SELF Referring Unavailable RUDY MORAN Primary Care Unavailable SELF Referring Unavailable ERI LLAMAS Attending Unavailable FARHAD ERI Attending Unavailable FARHAD ERI Referring Unavailable LLAMSA ERI Referring Unavailable NEDA BORREGO Attending Unavailable Medications Current Medications Medication Drug Class(es) Dates Sig (Normalized) Sig (Original) acetaminophen 325 mg / oxyCODONE hydrochloride 5 mg oral tablet (1 source) Opioid Agonist Start: 05-05-2019 End: 05-12-2019 oxyCODONE-acetamino phen (PERCOCET) 5-325 MG per tablet Indications: S/P cubital tunnel release Take 1 tablet by mouth every 6 hours as needed for Pain for up to 7 days. Intended supply: 7 days. Take lowest dose possible to manage pain 28 tablet 0 05/05/2019 05/12/2019 Active calcium chloride 0.0014 meq/ml / potassium chloride 0.004 meq/ml / sodium chloride 0.103 meq/ml / sodium lactate 0.028 meq/ml injectable solution (1 source) Start: 05-05-2019 lactated ringers infusion 1 ml diphenhydrAMINE hydrochloride 50 mg/ml cartridge (1 source) Histamine-1 Receptor Antagonist Start: 05-05-2019 End: 05-05-2019 diphenhydrAMINE (BENADRYL) injection 12.5 mg 2 ml fentaNYL 0.05 mg/ml injection (1 source) Opioid Agonist Start: 05-05-2019 fentaNYL (SUBLIMAZE) injection 100 mcg 1 ml hydrALAZINE hydrochloride 20 mg/ml injection (1 source) Arteriolar Vasodilator Start: 05-05-2019 hydrALAZINE (APRESOLINE) injection 5 mg hydrocortisone 25 mg/ml topical cream (1 source) Corticosteroid Start: 01-28-2023 End: 02-07-2023 hydrocortisone (ANUSOL-HC) 2.5 % rectal cream Indications: Rectal bleeding by RECTAL route two times a day for 10 days. 28 g 1 01/28/2023 02/07/2023 Active Completed/Discontinued Medications Medication Drug Class(es) Dates Sig (Normalized) Sig (Original) acetaminophen 500 mg oral tablet (1 source) Start: 05-05-2019 End: 05-05-2019 acetaminophen (TYLENOL) tablet 1,000 mg ceFAZolin (ANCEF) 2 g in dextrose 5 % 100 mL IVPB (1 source) Start: 05-05-2019 End: 05-05-2019 ceFAZolin (ANCEF) 2 g in dextrose 5 % 100 mL IVPB dexamethasone sod phos-bupiv (TAP) syringe 30 mL (1 source) Start: 05-05-2019 End: 05-05-2019 dexamethasone sod phos-bupiv (TAP) syringe 30 mL famotidine 20 mg oral tablet (1 source) Histamine-2 Receptor Antagonist Start: 05-05-2019 End: 05-05-2019 famotidine (PEPCID) tablet 20 mg hyoscyamine sulfate 0.125 mg sublingual tablet (2 sources) Start: 04-12-2019 take 0.125 mg under the tongue every six hours as needed hyoscyamine sublingual (LEVSIN SL) 0.125 mg subl Dissolve 1 tablet under the tongue four times daily as needed (abdominal pain). 20 tablet 2 04/12/2019 Active Problems Active Problems Problem Classification Problem Date Documented Da te Episodic/Chronic Esophageal disorders (3 sources) Gastroesophageal reflux disease; Translations: [Gastro-esophageal reflux disease without esophagitis] Onset: 01-28-2023 Chronic Other gastrointestinal disorders (2 sources) Anismus; Translations: [Other specified symptoms and signs involving the digestive system and abdomen] Episodic Other gastrointestinal disorders (1 source) Abdominal bloating; Translations: [Abdominal distension (gaseous)] 05-27-2023 Episodic Viral infection (1 source) Enteroviral vesicular stomatitis with exanthem; Translations: [Enteroviral vesicular stomatitis with exanthem] 12-04-2022 Episodic Past or Other Problems Problem Classification Problem Date Documented Da te Episodic/Chronic Abdominal pain (12 sources) Abdominal pain; Translations: [Unspecified abdominal pain] Onset: 10-30-2011 10-30-2011 Episodic Anal and rectal conditions (6 sources) Anal fissure; Translations: [Anal fissure, unspecified] Onset: 03-15-2013 03-15-2013 Episodic Contraceptive and procreative management (13 sources) Patient encounter status; Translations: [Encounter for fertility testing] Onset: 03-28-2014 03-28-2014 Episodic Gastrointestinal hemorrhage (2 sources) Rectal hemorrhage; Translations: [Hemorrhage of anus and rectum] Onset: 12-02-2022 01-28-2023 Episodic Genitourinary symptoms and ill-defined conditions (13 sources) Urgent desire to urinate; Translations: [Urgency of urination] Onset: 10-19-2012 10-19-2012 Episodic Other gastrointestinal disorders (1 source) Other specified symptoms and signs involving the digestive system and abdomen; 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] Onset: 03-31-2022 Episodic Other gastrointestinal disorders (1 source) Diarrhea, unspecified; Translations: [Diarrhea, unspecified type] Onset: 12-02-2022 Episodic Residual codes; unclassified (1 source) History of decompression of ulnar nerve Episodic Results Test Name Value Interpretation Reference Range Facil ity Vital Signs Date Time Vital Sign Value Performing Clinician Audi ascencio 12-04-2022 17:24-0400 Body temperature 97.2 [degF] Sachin Pastor MD Work Phone: [facility] 12-04-2022 17:24-0400 Body weight 93.53 kg Sachin Pastor MD Work Phone: [facility] 12-04-2022 17:24-0400 Diastolic blood pressure 82 mm[Hg] Sachin Pastor MD Work Phone: [facility] 12-04-2022 17:24-0400 Heart rate 68 /min Sachin Pastor MD Work Phone: [facility] 12-04-2022 17:24-0400 Respiratory rate 18 /min Sachin Pastor MD Work Phone: [facility] 12-04-2022 17:24-0400 SaO2% (BldA) [Mass fraction] 100 % Sachin Pastor MD Work Phone: [facility] 12-04-2022 17:24-0400 Systolic blood pressure 134 mm[Hg] Sachin Pastor MD Work Phone: [facility] 05-05-2019 17:24-0500 Body temperature 97.7 [degF] Toni Martinez MD Work Phone: [facility] Work Phone: 05-05-2019 17:24-0500 Diastolic blood pressure 95 mm[Hg] Toni Martinez MD Work Phone: [facility] Work Phone: 05-05-2019 17:24-0500 Heart rate 66 /min Toni Martinez MD Work Phone: [facility] Work Phone: 05-05-2019 17:24-0500 Respiratory rate 14 /min Toni Martinez MD Work Phone: [facility] Work Phone: 05-05-2019 17:24-0500 SaO2% (BldA) [Mass fraction] 96 % Toni Martinez MD Work Phone: [facility] Work Phone: 05-05-2019 17:24-0500 Systolic blood pressure 136 mm[Hg] Toni Martinez MD Work Phone: [facility] Work Phone: 05-05-2019 12:38-0500 Body height 188 cm Toni Martinez MD Work Phone: [facility] Work Phone: 05-05-2019 12:38-0500 Body mass index (BMI) [Ratio] 24.97 kg/m2 Toni Martinez MD Work Phone: [facility] Work Phone: 05-05-2019 12:38-0500 Body weight 88.22 kg Toni Martinez MD Work Phone: [facility] Work Phone: Encounters Encounter Date Encounter Type Care Provider Facility Start: 05-27-2023 End: 05-27-2023 ambulatory SELF Facility:[facility] Start: 05-27-2023 End: 05-27-2023 ambulatory Eri Llamas PA-C Work Phone: [facility] [place] Procedures Date Procedure Procedure Detail Performing Clinician Start: 12-30-2022 Colonoscopy Eri Llamas PA-C Work Phone: Start: 03-16-2022 Urnls dip stick/tabl et rgnt auto w/o microscopy Sonja Aceves PA-C Work Phone: Start: 10-21-2020 Us retroperitoneal r eal time w/image complete Celina Pringle EDUCATIONAL ADVISOR.METEOROLOGICAL ENGINEER, DNP Work Phone: Start: 05-05-2019 OPERATIVE REPORT 3m Sca nning Start: 05-01-2019 Colonoscopy Sonja guerrero PA-C Work Phone: Plan of Treatment Date Care Activity Detail Author Start: 2030 Shingles Vaccine (1 of 2) Shingles Vaccine [place]1 of 2[place] Start: 12-31-2027 Colonoscopy Colonoscopy [facility] Start: 12-31-2027 Colorectal Cancer Screening Colorectal Cancer Screening [facility] Start: 12-31-2027 Screening for malignant neoplasm of colon [facility] Start: 2025 FECAL OCCULT BLOOD FECAL OCCULT BLOOD [facility] Start: 2025 Screening for malignant neoplasm of colon [facility] Start: 2025 SIGMOIDOSCOPY SIGMOIDOSCOPY [facility] Start: 10-28-2024 DTaP/Tdap/Td vaccine (2 - Td) DTaP/Tdap/Td vaccine (2 - Td) [facility] Work Phone: Start: 10-28-2024 Urine microalbumin profile DTaP,Tdap,Td Vaccine (2 - Td or Tdap) [facility] Start: 05-01-2024 Colonoscopy COLONOSCOPY [facility] Start: 05-01-2024 COLORECTAL CANCER SCREENING COLORECTAL CANCER SCREENING [facility] Start: 04-05-2023 Depression Assessment Depression Assessment [facility] Start: 12-04-2022 Covid-19 Vaccine () Covid-19 Vaccine () [facility] Start: 12-04-2022 Influenza vaccination [facility] Start: 04-05-2022 DEPRESSION ASSESSMENT DEPRESSION ASSESSMENT [facility] Start: 04-05-2021 DEPRESSION ASSESSMENT DEPRESSION ASSESSMENT [facility] Start: 10-03-2020 COVID-19 VACCINE (3 - Booster for Moderna series) COVID-19 VACCINE (3 - Booster for Moderna series) [facility] Start: 10-03-2020 COVID-19 VACCINE (3 - Moderna series) COVID-19 VACCINE (3 - Moderna series) [facility] Start: 06-19-2019 End: 06-19-2019 Office Visit 06/19/2019 Office Visit Orthopedic Surgery Toni Martinez MD [address] [place] [address] [phone] [facility] [place] Start: 05-15-2019 End: 05-15-2019 Patient encounter procedure 05/15/2019 Office Visit Orthopedic Surgery Julianne Crabtree PA [address] [place] [address] [phone] [facility] [place] Start: 12-04-2018 Influenza vaccination Flu vaccine (#1) [facility] Work Phone: Start: 12-01-2015 Lipid 1996 panel - Serum or Plasma Lipid Screening [facility] Start: 12-01-2015 Lipid panel Lipid Screening [facility] Start: 12-01-2015 LIPID SCREEN LIPID SCREEN [facility] Start: 12-01-1999 Urine microalbumin profile DTAP,TDAP,TD (1 - Tdap) [facility] Start: 1998 HEPATITIS C SCREENING HEPATITIS C SCREENING [facility] Start: 1998 Hepatitis C screening Hepatitis C Screening [facility] Start: 1998 HIV SCREENING HIV SCREENING [facility] Start: 1998 HIV screening HIV Screening [facility] Start: 12-01-1995 HIV screen HIV screen [facility] Work Phone: Start: 1981 Varicella vaccine (1 of 2 - 2-dose childhood series) Varicella vaccine (1 of 2 - 2-dose childhood series) [facility] Work Phone: Start: 1980 HEPATITIS B (1 of 3 - 3-dose series) HEPATITIS B (1 of 3 - 3-dose series) [facility] Start: 1980 Hepatitis B Vaccine (1 of 3 - 3-dose series) Hepatitis B Vaccine (1 of 3 - 3-dose series) [facility] End: 05-27-2024 EGD DIAGNOSTIC EGD DIAGNOSTIC Endoscopy Routine Gastroesophageal reflux disease, unspecified whether esophagitis present Bloating 1 Occurrences starting 05/27/2023 until 05/27/2024 [facility] Work Phone: Immunizations Immunization Date Immunization Notes Care Provider Fa juanita 01-14-2022 influenza virus vacc ine, unspecified formulation Eri Llamas PA-C Work Phone: [facility] Payers Date Payer Category Payer Unknown BCBS BCBS OUT OF STATE xxxxxxxxxxxxxxx 2018-Present [address] [place] [address] xxxxxxxxxxxxxxx [id number] 2016 Unknown [employer] CARD PPO OOS [id number] 2016-Present [phone] [address] [place] [address] PPO .[id number] 2016 Unknown [id number] Social History Date Type Detail Facility Start: 05-15-2019 End: 12-02-2022 Tobacco smoking status NHIS Never smoker [facility] Start: 05-05-2019 Alcohol Comment socially, rare [facility] Work Phone: Start: 1980 Sex Assigned At Not on file S [facility] Work Phone: Start: 05-06-2017 End: 12-02-2022 Tobacco use and exposure Smokeless tobacco non-user [facility] Start: 10-15-2020 End: 04-08-2021 Alcohol intake Current drinker of alcohol (finding) [facility] Start: 06-02-2013 [facility] socially [facility] Start: 12-04-2022 End: 05-05-2023 Alcohol intake Ex-drinker (finding) [facility] Start: 12-02-2022 End: 12-04-2022 History of Social function [facility] Start: 12-02-2022 End: 12-04-2022 Tobacco use panel [facility] National Score (1-100), lower number is lower risk 65 [facility] Start: 12-02-2022 Alcohol Comment socially- pt h asn't drank in the last 2 years [facility] Start: 09-21-2020 End: 10-21-2020 Exposure to SARS-CoV-2 (event) Not sure [facility] Clinical Notes 05-05-2019 to 05-27-2023 Patient Eri Reynolds PA-C - 05/27/2023 9:30 AM Eri Noriega PA-C - 01/28/2023 7:30 AM EDTPatient Sachin Paris MD - 12/04/2022 5:29 PM EDTInstructions Note Date & Type Note Facility 05-27-2023 Note HNO ID: [id number] Author: ERI LLAMAS PA-C Service: ? Author Type: Physician Airplane First Officer Type: Progress Notes Filed: 05/27/2023 09:31 Note Text: This is a virtual visit using [employer] Video Visit. It required patient-provider interaction for the medical decision making as documented below. I have communicated my name and active licensure. The patient's identity and physical location were verified at the time of this visit. Either the patient or their legal aircraft sales representative has been informed of the risks and benefits of -- and alternatives to -- treatment through a remote evaluation and consents to proceed with the evaluation remotely. Kaiser Ring is a 42 year old male seen for f/u GERD. Patient tells me that he is doing okay today. Still with GERD symptoms despite Omeprazole. He was trying to skip a day but would get severe GERD symptoms including bloating. No nausea or vomiting. No dysphagia but will have a sore throat. Appetite is good. Bowel movements are regular. No rectal bleeding recently. Last OV with me 01/28/2023: Assessment/Plan (K21.9) Gastroesophageal reflux disease, unspecified whether esophagitis present (primary encounter diagnosis) (K62.5) Rectal bleeding 1. Gastroesophageal reflux disease, unspecified whether esophagitis present -- Patient with more GERD recently. -- Start Omeprazole 40 mg daily Recommend high protein, high fiber diet. Promotion of salivation through oral lozenges/chewing gum Drink plenty of water Avoid NSAIDs (such as Advil, Ibuprofen, Excedrin, Mobic), tobacco, alcohol, carbonated beverages, caffeine, chocolate, tomato based sauces, spicy/fatty foods, and peppermint Avoid eating less than 3 hours before bed. Elevate the head of the bed 6 inches, or invest in a wedge pillow. Laying on left side with head elevated may help alleviate reflux symptoms. - omeprazole (PRILOSEC) 40 mg capsule; Take 1 capsule by mouth once daily. Dispense: 30 capsule; Refill: 3 2. Rectal bleeding -- Discussed colonoscopy in detail today. Still with rectal bleeding intermittently. -- Start Anusol cream BID x10 days. - hydrocortisone (ANUSOL-HC) 2.5 % rectal cream; by RECTAL route two times a day for 10 days. Dispense: 28 g; Refill: 1 Follow up in office 3 months/PRN. HISTORY REVIEWED (electronic chart updated): PAST MEDICAL HISTORY Diagnosis Date GERD (gastroesophageal reflux disease) NEGATIVE MEDICAL HISTORY TB,PN,DM,CA,Heart Dis PAST SURGICAL HISTORY Procedure Laterality Date COLONOSCOPY 03/09/2013 COLONOSCOPY 05/01/2019 COLONOSCOPY SCREENING 12/30/2022 hyperplastic polyp splenic flexure, focal active colitis EGD W/O [facility] SPEC VARICIES INJ 05/01/2019 ESOPHAGOGASTRODUODENOSCOPY TRANSORAL DIAGNOSTIC 05/01/2019 EGD SIGMOIDOSCOPY FLX DX W/COLLJ SPEC BR/WA IF PFRMD 10/30/2011 Sigmoidoscopy, flexible FAMILY HISTORY Problem Relation Age of Onset Heart Mother None Father Colon Cancer No Family History or colon polyps Social History Tobacco Use Smoking status: Never Smokeless tobacco: Never Substance Use Topics Alcohol use: Not Currently Comment: socially- pt hasn't drank in the last 2 years Drug use: No Current Outpatient Medications Medication Sig omeprazole (PRILOSEC) 40 mg capsule TAKE 1 CAPSULE BY MOUTH EVERY DAY No current facility-administered medications for this visit. Facility-Administered Medications Ordered in Other Visits Medication Dose Route Frequency lidocaine (PF) 10 mg/mL (1 %) 1-2 mg injection (XYLOCAINE) 0.1-0.2 mL INTRADERMAL PRN NaCl 0.9% iv infusion 30 mL/hr INTRAVENOUS CONTINUOUS ALLERGIES No Known Allergies REVIEW OF SYSTEMS: Review of Systems Gastrointestinal: Positive for heartburn. Negative for abdominal pain, blood in stool, diarrhea, nausea and vomiting. Bloating PHYSICAL EXAMINATION: VIDEO EXAM: (if completed, performed via video enabled technology) Unable to connect to the video. Assessment/Plan (K21.9) Gastroesophageal reflux disease, unspecified whether esophagitis present (primary encounter diagnosis) (R14.0) Bloating 1. Gastroesophageal reflux disease, unspecified whether esophagitis present -- Patient with GERD symptoms despite Omeprazole. Tried to taper off it with worsening GERD, bloat. -- Would like to keep him on Omeprazole 40 mg, does not need refills -- Plan for repeat EGD Recommend high protein, high fiber diet. Promotion of salivation through oral lozenges/chewing gum Drink plenty of water Avoid NSAIDs (such as Advil, Ibuprofen, Excedrin, Mobic), tobacco, alcohol, carbonated beverages, caffeine, chocolate, tomato based sauces, spicy/fatty foods, and peppermint Avoid eating less than 3 hours before bed. Elevate the head of the bed 6 inches, or invest in a wedge pillow. Laying on left side with head elevated may help alleviate reflux symptoms. - EGD DIAGNOSTIC; Future 2. Bloating -- Patient with GERD symp (more content not included)... [facility] 05-27-2023 Instructions Eri Llamas PA-C - 05/27/2023 9:31 AM EST Recommend high protein, high fiber diet. Promotion of salivation through oral lozenges/chewing gum Drink plenty of water Avoid NSAIDs (such as Advil, Ibuprofen, Excedrin, Mobic), tobacco, alcohol, carbonated beverages, caffeine, chocolate, tomato based sauces, spicy/fatty foods, and peppermint Avoid eating less than 3 hours before bed. Elevate the head of the bed 6 inches, or invest in a wedge pillow. Laying on left side with head elevated may help alleviate reflux symptoms. documented in this encounter [facility] 05-27-2023 History of Presen t illness Narrative This is a virtual visit using [employer] Zoom Video Visit. It required patient-provider interaction for the medical decision making as documented below. I have communicated my name and active licensure. The patient's identity and physical location were verified at the time of this visit. Either the patient or their legal aircraft sales representative has been informed of the risks and benefits of -- and alternatives to -- treatment through a remote evaluation and consents to proceed with the evaluation remotely. Kaiser Ring is a 42 year old male seen for f/u GERD. Patient tells me that he is doing okay today. Still with GERD symptoms despite Omeprazole. He was trying to skip a day but would get severe GERD symptoms including bloating. No nausea or vomiting. No dysphagia but will have a sore throat. Appetite is good. Bowel movements are regular. No rectal bleeding recently. Last OV with me 01/28/2023: Assessment/Plan (K21.9) Gastroesophageal reflux disease, unspecified whether esophagitis present (primary encounter diagnosis) (K62.5) Rectal bleeding 1. Gastroesophageal reflux disease, unspecified whether esophagitis present -- Patient with more GERD recently. -- Start Omeprazole 40 mg daily Recommend high protein, high fiber diet. Promotion of salivation through oral lozenges/chewing gum Drink plenty of water Avoid NSAIDs (such as Advil, Ibuprofen, Excedrin, Mobic), tobacco, alcohol, carbonated beverages, caffeine, chocolate, tomato based sauces, spicy/fatty foods, and peppermint Avoid eating less than 3 hours before bed. Elevate the head of the bed 6 inches, or invest in a wedge pillow. Laying on left side with head elevated may help alleviate reflux symptoms. - omeprazole (PRILOSEC) 40 mg capsule; Take 1 capsule by mouth once daily. Dispense: 30 capsule; Refill: 3 2. Rectal bleeding -- Discussed colonoscopy in detail today. Still with rectal bleeding intermittently. -- Start Anusol cream BID x10 days. - hydrocortisone (ANUSOL-HC) 2.5 % rectal cream; by RECTAL route two times a day for 10 days. Dispense: 28 g; Refill: 1 Follow up in office 3 months/PRN. HISTORY REVIEWED (electronic chart updated): PAST MEDICAL HISTORY Diagnosis Date GERD (gastroesophageal reflux disease) NEGATIVE MEDICAL HISTORY TB,PN,DM,CA,Heart Dis PAST SURGICAL HISTORY Procedure Laterality Date COLONOSCOPY 03/09/2013 COLONOSCOPY 05/01/2019 COLONOSCOPY SCREENING 12/30/2022 hyperplastic polyp splenic flexure, focal active colitis EGD W/O [facility] SPEC VARICIES INJ 05/01/2019 ESOPHAGOGASTRODUODENOSCOPY TRANSORAL DIAGNOSTIC 05/01/2019 EGD SIGMOIDOSCOPY FLX DX W/COLLJ SPEC BR/WA IF PFRMD 10/30/2011 Sigmoidoscopy, flexible FAMILY HISTORY Problem Relation Age of Onset Heart Mother None Father Colon Cancer No Family History or colon polyps Social History Tobacco Use Smoking status: Never Smokeless tobacco: Never Substance Use Topics Alcohol use: Not Currently Comment: socially- pt hasn't drank in the last 2 years Drug use: No Current Outpatient Medications Medication Sig omeprazole (PRILOSEC) 40 mg capsule TAKE 1 CAPSULE BY MOUTH EVERY DAY No current facility-administered medications for this visit. Facility-Administered Medications Ordered in Other Visits Medication Dose Route Frequency lidocaine (PF) 10 mg/mL (1 %) 1-2 mg injection (XYLOCAINE) 0.1-0.2 mL INTRADERMAL PRN NaCl 0.9% iv infusion 30 mL/hr INTRAVENOUS CONTINUOUS ALLERGIES No Known Allergies REVIEW OF SYSTEMS: Review of Systems Gastrointestinal: Positive for heartburn. Negative for abdominal pain, blood in stool, diarrhea, nausea and vomiting. Bloating PHYSICAL EXAMINATION: VIDEO EXAM: (if completed, performed via video enabled technology) Unable to connect to the video. Assessment/Plan (K21.9) Gastroesophageal reflux disease, unspecified whether esophagitis present (primary encounter diagnosis) (R14.0) Bloating 1. Gastroesophageal reflux disease, unspecified whether esophagitis present -- Patient with GERD symptoms despite Omeprazole. Tried to taper off it with worsening GERD, bloat. -- Would like to keep him on Omeprazole 40 mg, does not need refills -- Plan for repeat EGD Recommend high protein, high fiber diet. Promotion of salivation through oral lozenges/chewing gum Drink plenty of water Avoid NSAIDs (such as Advil, Ibuprofen, Excedrin, Mobic), tobacco, alcohol, carbonated beverages, caffeine, chocolate, tomato based sauces, spicy/fatty foods, and peppermint Avoid eating less than 3 hours before bed. Elevate the head of the bed 6 inches, or invest in a wedge pillow. Laying on left side with head elevated may help alleviate reflux symptoms. - EGD DIAGNOSTIC; Future 2. Bloating -- Patient with GERD symptoms despite Omeprazole. Tried to taper off it with worsening GERD, bloat. -- Would like to keep him on Omeprazole 40 mg, does not need refills -- Plan for repeat EGD - EGD DIAGNOSTIC; Future Follow up in office PRN. Recommended to please call office/go to ER if fever, chills, chest pain, SOB, diarrhea, nausea, emesis, worsening abdominal pain, dehydration occurs I spent a total of 20 minutes on the date of the service which included preparing to see the patient, [id number] patient care, completing clinical documentation, obtaining and/or reviewing separately obtained history, performing a medically appropriate examination, counseling and educating the patient/family/caregiver, and ordering medications, tests, or procedures. Eri Llamas PA-C May 27, 2023 9:28 AM documented in this encounter [facility] 05-05-2023 Note HNO ID: [id number] Author: KIMMY LEIVA APRN.[place] Service: ? Author Type: Nurse Practitioner Type: Progress Notes Filed: 05/05/2023 17:57 Note Text: Subjective HPI Nontoxic-appearing male presents to urgent care with chief complaint of upper respiratory tract like infection. Duration of symptoms today. Associated symptoms sore throat, nasal congestion, nasal discharge and nonproductive cough. Patient denies the use of any jrzh-dco-fnaladl medications or home remedies for symptom management. Children sick with similar signs and symptoms.. Child diagnosed with bronchiolitis. Patient denies any productive cough, fever, chest pain, shortness of breath, pleuritic pain, rash, abdominal pain, nausea, vomiting or change in bowel or bladder habit. Past medical history prescription medications allergies reviewed. .Patient presents with: Cough: Sore throat, fever started this morning PAST MEDICAL HISTORY Diagnosis Date GERD (gastroesophageal reflux disease) NEGATIVE MEDICAL HISTORY TB,PN,DM,CA,Heart Dis PAST SURGICAL HISTORY Procedure Laterality Date COLONOSCOPY 03/09/2013 COLONOSCOPY 05/01/2019 COLONOSCOPY SCREENING 12/30/2022 hyperplastic polyp splenic flexure, focal active colitis EGD W/O BRSH SPEC VARICIES INJ 05/01/2019 ESOPHAGOGASTRODUODENOSCOPY TRANSORAL DIAGNOSTIC 05/01/2019 EGD SIGMOIDOSCOPY FLX DX W/COLLJ SPEC BR/WA IF PFRMD 10/30/2011 Sigmoidoscopy, flexible ALLERGIES Patient has no known allergies. MEDICATIONS omeprazole (PRILOSEC) 40 mg capsuleTAKE 1 CAPSULE BY MOUTH EVERY DAYDisp: 90 capsuleRfl: 2 FAMILY HISTORY Problem Relation Age of Onset Heart Mother None Father Colon Cancer No Family History or colon polyps Social History Tobacco Use Smoking status: Never Smokeless tobacco: Never Substance Use Topics Alcohol use: Not Currently Comment: socially- pt hasn't drank in the last 2 years Drug use: No BP 132/92 Pulse 62 Temp 36.7 ?C (98 ?F) Resp 21 Wt 92.9 kg (204 lb 12.8 oz) SpO2 98% BMI 26.29 kg/m? Review of Systems Constitutional: Negative for chills, fever and malaise/fatigue. HENT: Positive for congestion and sore throat. Negative for ear discharge, ear pain and sinus pain. Eyes: Negative for blurred vision, pain, discharge and redness. Respiratory: Positive for cough. Negative for hemoptysis, sputum production, shortness of breath, wheezing and stridor. Cardiovascular: Negative for chest pain. Gastrointestinal: Negative for abdominal pain, diarrhea, nausea and vomiting. Musculoskeletal: Negative for myalgias. Skin: Negative for itching and rash. Neurological: Negative for dizziness and headaches. Objective Physical Exam Constitutional: General: He is not in acute distress. Appearance: He is not diaphoretic. HENT: Head: Normocephalic. Jaw: No trismus, tenderness, swelling or pain on movement. Right Ear: Tympanic membrane, ear canal and external ear normal. Left Ear: Tympanic membrane, ear canal and external ear normal. Nose: Congestion present. Mouth/Throat: Mouth: Mucous membranes are moist. Pharynx: Oropharynx is clear. Uvula midline. No pharyngeal swelling, oropharyngeal exudate, posterior oropharyngeal erythema or uvula swelling. Eyes: Conjunctiva/sclera: Conjunctivae normal. Pupils: Pupils are equal, round, and reactive to light. Cardiovascular: Rate and Rhythm: Normal rate and regular rhythm. Heart sounds: Normal heart sounds. Pulmonary: Effort: Pulmonary effort is normal. No tachypnea, accessory muscle usage or respiratory distress. Breath sounds: Normal breath sounds. No stridor. No wheezing, rhonchi or rales. Abdominal: General: There is no distension. Palpations: Abdomen is soft. Tenderness: There is no abdominal tenderness. There is no guarding or rebound. Musculoskeletal: Cervical back: Normal range of motion and neck supple. No edema, erythema, rigidity or tenderness. No pain with movement. Normal range of motion. Lymphadenopathy: Cervical: No cervical adenopathy. Skin: General: Skin is warm and dry. Neurological: Mental Status: He is alert and oriented to person, place, and time. ASSESSMENT/PLAN: 1. URI with cough and congestion - ICD9: 465.9, ICD10: J06.9 - Discussed viral etiology and rationale for treatment. - Symptomatic treatment with prn analgesia - Supportive care with fluids and rest No evidence of bacterial infection noted on today's exam. Patient was educated on supportive therapies. Patient will follow up with primary care provider as needed. Patient was instructed to immediately proceed to emergency room for any new, worsening, or symptoms lasting longer than anticipated. The patient's clinical presentation is otherwise unremarkable at this time. Based on exam and clinical finding, the patient is stable for discharge. Plan of care was discussed with patient. Patient verbalizes understanding and agrees to plan (more content not included)... [facility] 01-28-2023 Note HNO ID: [id number] Author: Eri Llamas PA-C Service: ? Author Type: Physician Airplane First Officer Type: Progress Notes Filed: 01/28/2023 7:30 AM Note Text: This is a virtual visit using [employer] Video Visit. It required patient-provider interaction for the medical decision making as documented below. I have communicated my name and active licensure. The patient's identity and physical location were verified at the time of this visit. Either the patient or their legal aircraft sales representative has been informed of the risks and benefits of -- and alternatives to -- treatment through a remote evaluation and consents to proceed with the evaluation remotely. Kaiser Ring is a 42 year old male seen for f/u colonoscopy. Patient tells me that he is doing okay today. Notes that he is getting significant GERD symptoms throughout the day. Started OTC Omeprazole, only on about day 4. No nausea, vomiting, abdominal pain. Noting ongoing rectal bleeding about 3x a week with wiping. Bowel movements are regular. Colonoscopy 12/30/2022: Impression: - The examined portion of the ileum was normal. - One 3 mm polyp at the splenic flexure, removed with a cold biopsy forceps. Resected and retrieved. - The examination was otherwise normal on direct and retroflexion views. - Biopsies were taken with a cold forceps from the right colon and left colon for evaluation of microscopic colitis. Recommendation: - Discharge patient to home. - Resume previous diet. - Continue present medications. - Await pathology results. - Repeat colonoscopy in 7-10 years for surveillance based on pathology results. - Return to referring physician as previously scheduled. - Patient has a contact number available for emergencies. The signs and symptoms of potential delayed complications were discussed with the patient. Return to normal activities tomorrow. Written discharge instructions were provided to the patient. - The patient is not currently taking anticoagulant or antiplatelet agents. FINAL DIAGNOSIS A. Colon, right, biopsy: -Focal active colitis. B. Colon, left, biopsy: -Colonic mucosa with no diagnostic abnormality. C. Colon, splenic flexure polyp, biopsy: -Hyperplastic polyp. Last OV with me 12/02/2022: Assessment/Plan (K62.5) Rectal bleeding (primary encounter diagnosis) (R19.7) Diarrhea, unspecified type (K21.9) Gastroesophageal reflux disease, unspecified whether esophagitis present 1. Rectal bleeding -- Patient with persistent rectal bleeding since August. Happening at least two times a week. -- Will check fecal calprotectin, CBC, CMP -- Colonoscopy for further evaluation - CALPROTECTIN,FECAL - PANC ELASTASE, FECAL - COLONOSCOPY DIAGNOSTIC; Future - CBC + DIFF; Future - COMP METABOLIC PANEL; Future 2. Diarrhea, unspecified type -- Patient with diarrhea 2-3x a day -- Will check fecal calprotectin, CBC, CMP -- Colonoscopy for further evaluation -- Start OTC probiotic - CALPROTECTIN,FECAL - PANC ELASTASE, FECAL - COLONOSCOPY DIAGNOSTIC; Future - CBC + DIFF; Future - COMP METABOLIC PANEL; Future 3. Gastroesophageal reflux disease, unspecified whether esophagitis present -- Recommend avoiding eating at least 2-3 hours before laying down -- Okay to use OTC Pepcid PRN up to 40 mg daily -- CBC, CMP ordered - CBC + DIFF; Future - COMP METABOLIC PANEL; Future Follow up in office PRN. Component Latest Ref Rng AND Units 12/02/2022 WBC 3.70 - 11.00 k/uL 7.98 RBC 4.20 - 6.00 m/uL 5.48 Hemoglobin 13.0 - 17.0 g/dL 14.4 Hematocrit 39.0 - 51.0 % 45.8 MCV 80.0 - 100.0 fL 83.6 MCH 26.0 - 34.0 pg 26.3 MCHC 30.5 - 36.0 g/dL 31.4 RDW-CV 11.5 - 15.0 % 13.4 Platelet Count 150 - 400 k/uL 187 MPV 9.0 - 12.7 fL 9.3 Neut% % 83.1 Abs Neut (ANC) 1.45 - 7.50 k/uL 6.64 Lymph% % 9.4 Abs Lymph 1.00 - 4.00 k/uL 0.75 (L) [place]% % 6.3 Abs [place] <0.87 k/uL 0.50 Eosin% % 0.4 Abs Eosin <0.46 k/uL 0.03 Baso% % 0.5 Abs Baso <0.11 k/uL 0.04 Immature Gran % % 0.3 IMMATURE GRANS (ABS) <0.10 k/uL <0.03 NRBC /100 WBC 0.0 Absolute nRBC <0.01 k/uL <0.01 DTYPE Auto Protein, Total 6.3 - 8.0 g/dL 7.2 Albumin 3.9 - 4.9 g/dL 4.3 Calcium 8.5 - 10.2 mg/dL 9.6 Bilirubin, Total 0.2 - 1.3 mg/dL 0.4 Alkaline Phosphatase 38 - 113 U/L 102 AST 14 - 40 U/L 18 ALT 10 - 54 U/L 22 Glucose 74 - 99 mg/dL 77 BUN 9 - 24 mg/dL 10 Creatinine 0.73 - 1.22 mg/dL 0.84 Sodium 136 - 144 mmol/L 134 (L) Potassium 3.7 - 5.1 mmol/L 4.2 Chloride 97 - 105 mmol/L 104 CO2 22 - 30 mmol/L 19 (L) Anion Gap 9 - 18 mmol/L 11 eGFR >=60 mL/min/1.73mA? 112 Component Latest Ref Rng AND Units 12/15/2022 CALPROTECTIN, FECAL QUANTITATIVE <50 ug/g <5.00 CALPROTECTIN, FECAL INTERP Normal Normal ELASTASE-1 CONCENTRATION >=200 ug/g >800 ELASTASE INTERPRETATION Normal Normal HISTORY REVIEWED (electronic chart updated): PAST MEDICAL HISTORY Diagnosis Date GERD (gastroesophageal reflux dis (more content not included)... [facility] 01-28-2023 History of Presen t illness Narrative This is a virtual visit using [employer] Zoom Video Visit. It required patient-provider interaction for the medical decision making as documented below. I have communicated my name and active licensure. The patient's identity and physical location were verified at the time of this visit. Either the patient or their legal aircraft sales representative has been informed of the risks and benefits of -- and alternatives to -- treatment through a remote evaluation and consents to proceed with the evaluation remotely. Kaiser Ring is a 42 year old male seen for f/u colonoscopy. Patient tells me that he is doing okay today. Notes that he is getting significant GERD symptoms throughout the day. Started OTC Omeprazole, only on about day 4. No nausea, vomiting, abdominal pain. Noting ongoing rectal bleeding about 3x a week with wiping. Bowel movements are regular. Colonoscopy 12/30/2022: Impression: - The examined portion of the ileum was normal. - One 3 mm polyp at the splenic flexure, removed with a cold biopsy forceps. Resected and retrieved. - The examination was otherwise normal on direct and retroflexion views. - Biopsies were taken with a cold forceps from the right colon and left colon for evaluation of microscopic colitis. Recommendation: - Discharge patient to home. - Resume previous diet. - Continue present medications. - Await pathology results. - Repeat colonoscopy in 7-10 years for surveillance based on pathology results. - Return to referring physician as previously scheduled. - Patient has a contact number available for emergencies. The signs and symptoms of potential delayed complications were discussed with the patient. Return to normal activities tomorrow. Written discharge instructions were provided to the patient. - The patient is not currently taking anticoagulant or antiplatelet agents. FINAL DIAGNOSIS A. Colon, right, biopsy: -Focal active colitis. B. Colon, left, biopsy: -Colonic mucosa with no diagnostic abnormality. C. Colon, splenic flexure polyp, biopsy: -Hyperplastic polyp. Last OV with me 12/02/2022: Assessment/Plan (K62.5) Rectal bleeding (primary encounter diagnosis) (R19.7) Diarrhea, unspecified type (K21.9) Gastroesophageal reflux disease, unspecified whether esophagitis present 1. Rectal bleeding -- Patient with persistent rectal bleeding since August. Happening at least two times a week. -- Will check fecal calprotectin, CBC, CMP -- Colonoscopy for further evaluation - CALPROTECTIN,FECAL - PANC ELASTASE, FECAL - COLONOSCOPY DIAGNOSTIC; Future - CBC + DIFF; Future - COMP METABOLIC PANEL; Future 2. Diarrhea, unspecified type -- Patient with diarrhea 2-3x a day -- Will check fecal calprotectin, CBC, CMP -- Colonoscopy for further evaluation -- Start OTC probiotic - CALPROTECTIN,FECAL - PANC ELASTASE, FECAL - COLONOSCOPY DIAGNOSTIC; Future - CBC + DIFF; Future - COMP METABOLIC PANEL; Future 3. Gastroesophageal reflux disease, unspecified whether esophagitis present -- Recommend avoiding eating at least 2-3 hours before laying down -- Okay to use OTC Pepcid PRN up to 40 mg daily -- CBC, CMP ordered - CBC + DIFF; Future - COMP METABOLIC PANEL; Future Follow up in office PRN. Component Latest Ref Rng & Units 12/02/2022 WBC 3.70 - 11.00 k/uL 7.98 RBC 4.20 - 6.00 m/uL 5.48 Hemoglobin 13.0 - 17.0 g/dL 14.4 Hematocrit 39.0 - 51.0 % 45.8 MCV 80.0 - 100.0 fL 83.6 MCH 26.0 - 34.0 pg 26.3 MCHC 30.5 - 36.0 g/dL 31.4 RDW-CV 11.5 - 15.0 % 13.4 Platelet Count 150 - 400 k/uL 187 MPV 9.0 - 12.7 fL 9.3 Neut% % 83.1 Abs Neut (ANC) 1.45 - 7.50 k/uL 6.64 Lymph% % 9.4 Abs Lymph 1.00 - 4.00 k/uL 0.75 (L) [place]% % 6.3 Abs [place] <0.87 k/uL 0.50 Eosin% % 0.4 Abs Eosin <0.46 k/uL 0.03 Baso% % 0.5 Abs Baso <0.11 k/uL 0.04 Immature Gran % % 0.3 IMMATURE GRANS (ABS) <0.10 k/uL <0.03 NRBC /100 WBC 0.0 Absolute nRBC <0.01 k/uL <0.01 DTYPE Auto Protein, Total 6.3 - 8.0 g/dL 7.2 Albumin 3.9 - 4.9 g/dL 4.3 Calcium 8.5 - 10.2 mg/dL 9.6 Bilirubin, Total 0.2 - 1.3 mg/dL 0.4 Alkaline Phosphatase 38 - 113 U/L 102 AST 14 - 40 U/L 18 ALT 10 - 54 U/L 22 Glucose 74 - 99 mg/dL 77 BUN 9 - 24 mg/dL 10 Creatinine 0.73 - 1.22 mg/dL 0.84 Sodium 136 - 144 mmol/L 134 (L) Potassium 3.7 - 5.1 mmol/L 4.2 Chloride 97 - 105 mmol/L 104 CO2 22 - 30 mmol/L 19 (L) Anion Gap 9 - 18 mmol/L 11 eGFR >=60 mL/min/1.73m 112 Component Latest Ref Rng & Units 12/15/2022 CALPROTECTIN, FECAL QUANTITATIVE <50 ug/g <5.00 CALPROTECTIN, FECAL INTERP Normal Normal ELASTASE-1 CONCENTRATION >=200 ug/g >800 ELASTASE INTERPRETATION Normal Normal HISTORY REVIEWED (electronic chart updated): PAST MEDICAL HISTORY Diagnosis Date GERD (gastroesophageal reflux disease) NEGATIVE MEDICAL HISTORY TB,PN,DM,CA,Heart Dis PAST SURGICAL HISTORY Procedure Laterality Date COLONOSCOPY 03/09/2013 COLONOSCOPY 05/01/2019 COLONOSCOPY SCREENING 12/30/2022 hyperplastic polyp splenic flexure, focal active colitis EGD W/O BRSH SPEC VARICIES INJ 05/01/2019 ESOPHAGOGASTRODUODENOSCOPY TRANSORAL DIAGNOSTIC 05/01/2019 EGD SIGMOIDOSCOPY FLX DX W/COLLJ SPEC BR/WA IF PFRMD 10/30/2011 Sigmoidoscopy, flexible FAMILY HISTORY Problem Relation Age of Onset Heart Mother None Father Colon Cancer No Family History or colon polyps Social History Tobacco Use Smoking status: Never Smokeless tobacco: Never Substance Use Topics Alcohol use: Not Currently Comment: socially- pt hasn't drank in the last 2 years Drug use: No No current outpatient medications on file. No current facility-administered medications for this visit. Facility-Administered Medications Ordered in Other Visits Medication Dose Route Frequency lidocaine (PF) 10 mg/mL (1 %) 1-2 mg injection (XYLOCAINE) 0.1-0.2 mL INTRADERMAL PRN NaCl 0.9% iv infusion 30 mL/hr INTRAVENOUS CONTINUOUS ALLERGIES No Known Allergies REVIEW OF SYSTEMS: Review of Systems Gastrointestinal: Positive for blood in stool and heartburn. Negative for abdominal pain, diarrhea, nausea and vomiting. PHYSICAL EXAMINATION: VIDEO EXAM: (if completed, performed via video enabled technology) Patient did not have video on during meeting. Assessment/Plan (K21.9) Gastroesophageal reflux disease, unspecified whether esophagitis present (primary encounter diagnosis) (K62.5) Rectal bleeding 1. Gastroesophageal reflux disease, unspecified whether esophagitis present -- Patient with more GERD recently. -- Start Omeprazole 40 mg daily Recommend high protein, high fiber diet. Promotion of salivation through oral lozenges/chewing gum Drink plenty of water Avoid NSAIDs (such as Advil, Ibuprofen, Excedrin, Mobic), tobacco, alcohol, carbonated beverages, caffeine, chocolate, tomato based sauces, spicy/fatty foods, and peppermint Avoid eating less than 3 hours before bed. Elevate the head of the bed 6 inches, or invest in a wedge pillow. Laying on left side with head elevated may help alleviate reflux symptoms. - omeprazole (PRILOSEC) 40 mg capsule; Take 1 capsule by mouth once daily. Dispense: 30 capsule; Refill: 3 2. Rectal bleeding -- Discussed colonoscopy in detail today. Still with rectal bleeding intermittently. -- Start Anusol cream BID x10 days. - hydrocortisone (ANUSOL-HC) 2.5 % rectal cream; by RECTAL route two times a day for 10 days. Dispense: 28 g; Refill: 1 Follow up in office 3 months/PRN. Recommended to please call office/go to ER if fever, chills, chest pain, SOB, diarrhea, nausea, emesis, worsening abdominal pain, dehydration occurs I spent a total of 15 minutes on the date of the service which included preparing to see the patient, [id number] patient care, completing clinical documentation, obtaining and/or reviewing separately obtained history, performing a medically appropriate examination, counseling and educating the patient/family/caregiver, ordering medications, tests, or procedures, and communicating results to the patient/family/caregiver. Eri Llamas PA-C January 28, 2023 7:27 AM documented in this encounter [facility] 01-28-2023 Instructions Eri Llamas PA-C - 01/28/2023 7:29 AM EDT -- Shoot me a mychart message in 10 days after using rectal cream if still having bleeding Recommend high protein, high fiber diet. Promotion of salivation through oral lozenges/chewing gum Drink plenty of water Avoid NSAIDs (such as Advil, Ibuprofen, Excedrin, Mobic), tobacco, alcohol, carbonated beverages, caffeine, chocolate, tomato based sauces, spicy/fatty foods, and peppermint Avoid eating less than 3 hours before bed. Elevate the head of the bed 6 inches, or invest in a wedge pillow. Laying on left side with head elevated may help alleviate reflux symptoms. documented in this encounter [facility] 12-30-2022 Note HNO ID: [id number] Author: Kandis Thomas RN Service: ? Author Type: Registered Nurse Type: Nursing Progress Note Filed: 12/30/2022 8:39 AM Note Text: Dr. Almodovar at bedside to speak to patient. Verbalizes understanding. OK to d/c. [facility] 12-04-2022 Note HNO ID: [id number] Author: Sachin Pastor MD Service: ? Author Type: Physician Type: Progress Notes Filed: 12/04/2022 5:43 PM Note Text: Patient presents with: Rash: Exposure to HFM HPI: Rash: Location: hands and forearms Duration: 1 day Pruritis: Yes Pain: Bleeding/ulceration/blister/pust ule: reds spots and bumps Contacts with rash: children have hand foot and mouth disease Exposure: Recent illness: he had fever 2 nights ago. Treatment: MEDICATIONS: No prescriptions on file. ALLERGIES: ALLERGIES No Known Allergies VITALS: BP 134/82 Pulse 68 Temp 36.2 ?C (97.2 ?F) Resp 18 Wt 93.5 kg (206 lb 3.2 oz) SpO2 100% BMI 26.47 kg/m? PHYSICAL EXAM: GEN: pleasant, no acute distress, alert SKIN: red macules and papules with possible vesicles on on hands(including palms), wrists, and forearms ASSESSMENT/PLAN: 1. Hand foot and mouth disease - ICD9: 074.3, ICD10: B08.4 Unusual age for rash but he has classic HFANDM rash after exposure. Hand, foot, and mouth disease is a contagious illness caused by a virus. Treatment is supportive. People with HFMD are most contagious during the first week of their illness. However, they may sometimes remain contagious for weeks after symptoms go away. The virus can be spread by saliva, blister fluid, and feces. Reduce spread by hand washing and disinfecting surfaces. Children may usually return to childrens club attendant once fever and maliase are resolved. Sachni Pastor MD [facility] 12-04-2022 History of Presen t illness Narrative Patient presents with: Rash: Exposure to HFM HPI: Rash: Location: hands and forearms Duration: 1 day Pruritis: Yes Pain: Bleeding/ulceration/blister/pust ule: reds spots and bumps Contacts with rash: children have hand foot and mouth disease Exposure: Recent illness: he had fever 2 nights ago. Treatment: MEDICATIONS: No prescriptions on file. ALLERGIES: ALLERGIES No Known Allergies VITALS: BP 134/82 Pulse 68 Temp 36.2 C (97.2 F) Resp 18 Wt 93.5 kg (206 lb 3.2 oz) SpO2 100% BMI 26.47 kg/m PHYSICAL EXAM: GEN: pleasant, no acute distress, alert SKIN: red macules and papules with possible vesicles on on hands(including palms), wrists, and forearms ASSESSMENT/PLAN: 1. Hand foot and mouth disease - ICD9: 074.3, ICD10: B08.4 Unusual age for rash but he has classic HF&M rash after exposure. Hand, foot, and mouth disease is a contagious illness caused by a virus. Treatment is supportive. People with HFMD are most contagious during the first week of their illness. However, they may sometimes remain contagious for weeks after symptoms go away. The virus can be spread by saliva, blister fluid, and feces. Reduce spread by hand washing and disinfecting surfaces. Children may usually return to childrens club attendant once fever and maliase are resolved. Sachin Pastor MD documented in this encounter [facility] 12-02-2022 Note HNO ID: [id number] Author: Eri Lanza PA-C Service: ? Author Type: Physician Airplane First Officer Type: Progress Notes Filed: 12/02/2022 2:12 PM Note Text: CHIEF COMPLAINT: Patient presents with: Diarrhea: Bloating, abdominal discomfort, anal bleeding, rectal pain Acid Reflux : Sore throat This consult was requested by Self for an opinion regarding diarrhea, bloating, rectal bleeding. My final recommendations will be communicated to the requesting health care provider by way of the shared medical record for internal providers or letter via the [employer] for external providers. HPI: Kaiser Ring is a 42 year old male who presents for Diarrhea (Bloating, abdominal discomfort, anal bleeding, rectal pain) and Acid Reflux (Sore throat ). Patient tells me that he has been dealing with GERD, around a few times a week. Notes it mostly when he eats closer to bedtime. Does not take anything for this. Notes sore throat. No dysphagia. No nausea, vomiting. Appetite is good. Weight is stable. Moving his bowels 2-3x a day. Mostly a 5-6 on the [place] stool scale. Trying to incorporate more fiber into diet. Having persistent rectal bleeding, a few times a week. Seeing this when wiping. Rectal burning. Abdominal discomfort is generalized, doesn't seem to be triggered by eating, bowel movements. No smoking or alcohol use. No pertinent GI family hx. EGD 05/01/2019: Impression: - Normal esophagus. - Normal stomach. Biopsied. - Normal examined duodenum. Recommendation: - Discharge patient to home. - Written discharge instructions were provided to the patient. - Resume previous diet. - Return to nurse practitioner at the next available appointment. Colonoscopy 05/01/2019: Impression: - One 6 mm polyp in the rectum, removed with a jumbo cold forceps. Resected and retrieved. - The entire examined colon is normal. Biopsied. Recommendation: - Discharge patient to home. - Written discharge instructions were provided to the patient. - Resume previous diet. - Repeat colonoscopy in 5 years for surveillance. - Return to nurse practitioner at the next available appointment. - Patient has a contact number available for emergencies. The signs and symptoms of potential delayed complications were discussed with the patient. Return to normal activities tomorrow. Written discharge instructions were provided to the patient. - Continue present medications. CONVERTED FINAL DIAGNOSIS 1. Stomach, antrum, biopsy (A) - Gastric antral-type mucosa with no significant pathologic change, - No intestinal metaplasia or morphologic evidence of Helicobacter pylori organisms. 2. Colon, random, biopsy (B) - Colonic mucosa with no significant pathologic change. 3. Rectum, polyp, biopsy (C) - Rectal mucosa with mild hyperplastic epithelial changes, see comment. Record Review: [facility] / Outside records reviewed. PAST MEDICAL HISTORY Diagnosis Date NEGATIVE MEDICAL HISTORY TB,PN,DM,CA,Heart Dis PAST SURGICAL HISTORY Procedure Laterality Date COLONOSCOPY 03/09/2013 COLONOSCOPY 05/01/2019 EGD W/O [facility] SPEC VARICIES INJ 05/01/2019 ESOPHAGOGASTRODUODENOSCOPY TRANSORAL DIAGNOSTIC 05/01/2019 EGD SIGMOIDOSCOPY FLX DX W/COLLJ SPEC BR/WA IF PFRMD 10/30/2011 Sigmoidoscopy, flexible Allergies: ALLERGIES No Known Allergies Medications: No prescriptions on file. FAMILY HISTORY Problem Relation Age of Onset Heart Mother None Father Colon Cancer No Family History or colon polyps Employer And Job Title: [employer]) Years Of Education Completed: Not specified Marital Status: with no children Social History Tobacco Use Smoking status: Never Smokeless tobacco: Never Substance Use Topics Alcohol use: Not Currently Comment: socially- pt hasn't drank in the last 2 years Drug use: No Review of Systems: Review of Systems HENT: Positive for sore throat. Gastrointestinal: Positive for abdominal distention, abdominal pain, anal bleeding, diarrhea and rectal pain. Change in Bowel Habits, Gas All other systems reviewed and are negative. Are you taking any blood thinners? No Physical Examination: BP 124/84 Pulse 67 Ht 6' 2 (1.88m) Wt 207 lb 8 oz (94.1kg) BMI 26.63 kg/(m2). Physical Exam Constitutional: Appearance: Normal appearance. He is normal weight. HENT: Head: Normocephalic and atraumatic. Eyes: General: No scleral icterus. Extraocular Movements: Extraocular movements intact. Conjunctiva/sclera: Conjunctivae normal. Pupils: Pupils are equal, round, and reactive to light. Cardiovascular: Rate and Rhythm: Normal rate and regular rhythm. Pulses: Normal pulses. Heart sounds: Normal heart sounds. Pulmonary: Effort: Pulmonary effort is normal. Breath sounds: Normal breath sounds. Abdominal: General: Abdomen is flat. Bowel sounds are normal. Palpations: Abdomen is soft. Tenderness: There (more content not included)... [facility] 07-28-2022 Note HNO ID: [id number] Author: Jerardo Sheridan PT Service: ? Author Type: Physical Therapist Type: Progress Notes Filed: 07/28/2022 1:48 PM Note Text: 07/28/2022 [facility] PHYSICAL THERAPY DISCONTINUANCE OF CARE Plan of Care Period: Start of Care Date: 03/31/22 Last Visit Date: 03/31/2022 Therapy Program: Patient did not return for follow up care as planned. Please refer to last visit note for interventions provided for this episode of care. Assessment: Unable to formally assess goal achievement. Reason for Discontinuation of Care: Patient has not returned to therapy or scheduled additional follow-up appointments. Jerardo Sheridan PT [facility] 03-31-2022 Note HNO ID: [id number] Author: Jerardo Sheridan PT Service: ? Author Type: Physical Therapist Type: Progress Notes Filed: 03/31/2022 8:19 AM Note Text: Episode Visit Count: 1 Therapist That Will Accept/Oversee The Plan Of Care: Jerardo Sheridan Start of Care Date: 03/31/22 Onset Date: 02/25/22 Plan of Care Certification Date: 03/31/22 Next Certification Due Date: 06/23/22 Patient Identified by Name and Date of : Yes REHABILITATION AND SPORTS THERAPY PHYSICAL THERAPY EVALUATION PLAN OF CARE: Assessment: Kaiesr Ring presents with chief complaint of urinary freq/urgency and perineal tightness that interferes with bladder function;sitting;working . He presents with impairments in coordination, flexibility, independence in exercise, range of motion, and symptom management. Prognosis for therapy is Good due to: current objective clinical presentation;acuteness of condition . He will benefit from skilled therapy services to meet the goals established for this plan of care as noted below. Goals for Episode of Care: created on 03/31/22 through 06/23/22 Patient to demonstrate independence with HEP Patient to urinate every 2-4 hours Urinate 0-1 times per night Patient reports 50% reduction in post void dribble frequency Patient reports increased ability to fully empty bladder Pelvic Pain: Patient to demonstrate independence in HEP Patient displays increased flexibility in pelvic floor to allow for improve mechanics Patient demonstrates ability to perform diaphragmatic breathing and relaxation Patient will be able to decrease muscle resting tone of pelvic floor muscles to allow for improved urinary elimination and increased sitting tolerance. Pt will report decreased sensation of burning or pain with urination Patient displays improved muscle dynamics of pelvic floor including ability to lengthen Patient will decrease pain/discomfort rating by 2 points to meet minimal clinical important difference for numeric pain rating scale. Knowledgeable regarding prophylaxis. Patient Goals: reduce pain and freq of urination Planned Interventions, Frequency, and Duration: Current Frequency: 1x every other week Duration: 12 weeks Total Number of Visits Planned: 6 Planned Treatment Interventions: Therapeutic exercise (02403);Neuromuscular re-education (71395);Manual therapy (73347);Therapeutic activities (75122);Self-nursing home management (91037) PLAN FOR NEXT VISIT: assess response to HEP, +Tennis ball, cat/cow, deep squat and check for abdominal restrictions Patient demonstrates good understanding of plan of care and treatment. The above goals and plan of care were discussed and agreed upon by patient/family. SUBJECTIVE: Kaiser Ring is a 41 year old male seen today for urinary frequncy, urgency and painful urination Patient reports constant urination, post void dribble. Stinging during urination. Urodynamics showing complete emptying. Does feeling that he empties though will have to return within a hour of voiding. Intermittent tension in muscles, also felt. Mostly increases with prolonged sitting, impacting work activity. Patient Goals: reduce pain and freq of urination Functional Limitations: bladder function;sitting;working Prior Level of Function: Independent without limitations Intake Information: Prescription present Previous Treatment: None Pain: Pain Pain Level: 0 Pain Location: Perineum Description: Tightness Frequency: Intermittent (sitting for a long period of time) Detailed Pain Score: Yes Worst Pain Level: 6 PROMIS Scales T-scores: mean of general population = 50. 5 points is clinically meaningfully difference Percentiles provide an indication of how the patient's score ranks in relation to the general population. Higher percentile rankings indicate better function/quality of life. 50th percentile is the average of the general population and indicates half of respondents had a worse score. T-scores: mean of general population = 50. 5 points is clinically meaningfully difference Percentiles provide an indication of how the patient's score ranks in relation to the general population. Higher percentile rankings indicate better function/quality of life. 50th percentile is the average of the general population and indicates half of respondents had a worse score. OBJECTIVE MEASURES WITH LEVEL OF FUNCTION: Pelvic Floor Erectile dysfunction: none Ejaculatory dysfunction: none Urinary/Bowel History : Bowel History;Urinary History Difficulty starting stream: No slow or intermittent stream: Sometimes strains to void: Sometimes Incomplete emptying: No Stress Incontinence: No Post Void Dribble: Yes Urgency: No Nocturia (times per night): (0-2x during night) Daytime Frequency (hours): 7-8x daily Fluid Intake: Water;Tea;Juice Water : 2-3, 16 oz glasses Tea : 16 oz green tea Juice : 16 oz grape juice Difficulty (more content not included)... [facility] 03-31-2022 History of Presen t illness Narrative Episode Visit Count: 1 Therapist That Will Accept/Oversee The Plan Of Care: Jerardo Sheridan Start of Care Date: 03/31/22 Onset Date: 02/25/22 Plan of Care Certification Date: 03/31/22 Next Certification Due Date: 06/23/22 Patient Identified by Name and Date of : Yes REHABILITATION AND SPORTS THERAPY PHYSICAL THERAPY EVALUATION PLAN OF CARE: Assessment: Kaiser Ring presents with chief complaint of urinary freq/urgency and perineal tightness that interferes with bladder function;sitting;working . He presents with impairments in coordination, flexibility, independence in exercise, range of motion, and symptom management. Prognosis for therapy is Good due to: current objective clinical presentation;acuteness of condition . He will benefit from skilled therapy services to meet the goals established for this plan of care as noted below. Goals for Episode of Care: created on 03/31/22 through 06/23/22 Patient to demonstrate independence with HEP Patient to urinate every 2-4 hours Urinate 0-1 times per night Patient reports 50% reduction in post void dribble frequency Patient reports increased ability to fully empty bladder Pelvic Pain: Patient to demonstrate independence in HEP Patient displays increased flexibility in pelvic floor to allow for improve mechanics Patient demonstrates ability to perform diaphragmatic breathing and relaxation Patient will be able to decrease muscle resting tone of pelvic floor muscles to allow for improved urinary elimination and increased sitting tolerance. Pt will report decreased sensation of burning or pain with urination Patient displays improved muscle dynamics of pelvic floor including ability to lengthen Patient will decrease pain/discomfort rating by 2 points to meet minimal clinical important difference for numeric pain rating scale. Knowledgeable regarding prophylaxis. Patient Goals: reduce pain and freq of urination Planned Interventions, Frequency, and Duration: Current Frequency: 1x every other week Duration: 12 weeks Total Number of Visits Planned: 6 Planned Treatment Interventions: Therapeutic exercise (18376);Neuromuscular re-education (61607);Manual therapy (96037);Therapeutic activities (36571);Self-nursing home management (42315) PLAN FOR NEXT VISIT: assess response to HEP, +Tennis ball, cat/cow, deep squat and check for abdominal restrictions Patient demonstrates good understanding of plan of care and treatment. The above goals and plan of care were discussed and agreed upon by patient/family. SUBJECTIVE: Kaiser Ring is a 41 year old male seen today for urinary frequncy, urgency and painful urination Patient reports constant urination, post void dribble. Stinging during urination. Urodynamics showing complete emptying. Does feeling that he empties though will have to return within a hour of voiding. Intermittent tension in muscles, also felt. Mostly increases with prolonged sitting, impacting work activity. Patient Goals: reduce pain and freq of urination Functional Limitations: bladder function;sitting;working Prior Level of Function: Independent without limitations Intake Information: Prescription present Previous Treatment: None Pain: Pain Pain Level: 0 Pain Location: Perineum Description: Tightness Frequency: Intermittent (sitting for a long period of time) Detailed Pain Score: Yes Worst Pain Level: 6 PROMIS Scales T-scores: mean of general population = 50. 5 points is clinically meaningfully difference Percentiles provide an indication of how the patient's score ranks in relation to the general population. Higher percentile rankings indicate better function/quality of life. 50th percentile is the average of the general population and indicates half of respondents had a worse score. T-scores: mean of general population = 50. 5 points is clinically meaningfully difference Percentiles provide an indication of how the patient's score ranks in relation to the general population. Higher percentile rankings indicate better function/quality of life. 50th percentile is the average of the general population and indicates half of respondents had a worse score. OBJECTIVE MEASURES WITH LEVEL OF FUNCTION: Pelvic Floor Erectile dysfunction: none Ejaculatory dysfunction: none Urinary/Bowel History : Bowel History;Urinary History Difficulty starting stream: No slow or intermittent stream: Sometimes strains to void: Sometimes Incomplete emptying: No Stress Incontinence: No Post Void Dribble: Yes Urgency: No Nocturia (times per night): (0-2x during night) Daytime Frequency (hours): 7-8x daily Fluid Intake: Water;Tea;Juice Water : 2-3, 16 oz glasses Tea : 16 oz green tea Juice : 16 oz grape juice Difficulty evacuating / Excessive Straining: No Incomplete emptying: No Bowel Movement Frequency: regular Pelvic Floor Muscle Assessment Consent for pelvic assessment/testing and treatment: Patient was educated regarding pelvic floor physical therapy assessment/treatment which may include pelvic floor and girdle muscle assessment externally or internally (vaginal or rectal approach).;Patient verbalized consent for the above treatment approaches today. Patient understands they have control of the treatment and an opportunity to stop treatment at any time. Pelvic Floor Muscle Assessment: Muscle Dynamics Range of Motion: Decreased Ability to Lengthen pelvic floor: No Diaphragmatic Breathing : Fair (appropriate abdominal excursion though lacking pace control at this time) Pelvic Floor Manual Assessment Pelvic Floor Tenderness/Hyperactivity: Tested Rectally in;Tested Externally in Tested Rectally in : Sidelying Levator Ani: Bilateral (mod tension) Coccygeus: Bilateral (severe tension) Obturator internus: Bilateral (mod tension) Tested Externally in: Sidelying Bulbocavernosus/ Bulbospongiosus: Bilateral (mod-severe tension) Ischiocavernosus: Bilateral (mod-severe tension) Pelvic Region Sensation: Grossly Intact Education: Education Learning Preferences: Explanation;Demonstration;Perfor esther;Printed Materials Barriers: None Learning/educational needs: Home exercise program;Plan of Care Education Provided: Yes, see treatment interventions for education provided Education Provided To: Patient Education Mode/Type: Explanation/Discussion;Demonstra tion;Literature/Printed Materials;Performance Response to Education/Teach Back: States/Identifies;Return Demonstration;Requires Review/Additional Education TREATMENT: PT Treatment Interventions: Neuromuscular Re-Education;Self-Halfway Management Evaluation Evaluation Neuromuscular Re-Education: 1: Patient education on pelvic floor muscle anatomy and function as well as positioning of reproductive and digestive organs to facilitate understanding of Dx and treatment approach 2: Patient education on reciprocal relation between diaphragm and pelvic floor with respiration for improved understanding of natural piston mechanics with breath and relation to pelvic floor movement 3: *Instruction of Diaphragmatic breathing; placing one hand on chest and one on abdomen for biofeedback, encouraged belly rise with 4 second inhalation and controlled 8 second exhalation 4: *Happy baby w/ DB and lengthening coordination focus 5: *Patrick pose w/ DB and lengthening coordination focus Skilled Intervention: Skilled judgment used to assess appropriate program for balance and coordination activity. Provided written instruction for home program to facilitate proper performance and compliance. Correct performance of home program was facilitated with verbal, visual, and tactile cueing. Patient education as noted. Self-Halfway Management: 1: Patient advised to limit fluid 2 hours before bed to address nocturia 2: Handout given on instructions for controlling urinary urge; PT recommendation to focus on making routine of these methods (slowing down, DB, autogenic training, distraction, manual pressure) with each sensation of urge with intent on retraining bladder function 3: established 2 hour minimum goal t/o daytime voids 4: Patient education on techniques to assist in promoting bladder emptying; Privacy, relaxation with DB, leaning forward, sitting to promote reduced post void dribble 5: *3-5 min daily self perineal massage to reduce post void dribble Skilled Intervention: Skilled judgment in the selection of proper modification for activity of daily living/home management based on clinical presentation, deficits, and needs. Provided written instruction for home program to facilitate proper performance and compliance. Correct performance of home program was facilitated with verbal and visual cueing. Billing * Evaluation Low Complexity: 1 Unit Neuromuscular Re-Education Treatment Minutes: 16 Self-Care/Home Management Treatment Minutes: 17 Total Treatment Time Minutes (timed/untimed): 55 Jerardo Sehridan PT documented in this encounter [facility] 03-16-2022 Instructions Sonja Aceves PA-C - 03/16/2022 10:40 AM EST > Pelvic Floor PT Evaluation Follow up 3 month with DREA Gonzalez MT, PA-C documented in this encounter [facility] 03-16-2022 History of Presen t illness Narrative Images from the original note were not included. [facility] ESTABLISHED PATIENT CLINIC NOTE Some elements copied from his previous note, which have been updated where appropriate, and all reflect current medical decision making from date of this visit. 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 We dicussed his symptoms in light of his past concerns And I would like to see if he has pelvic floor spasms, which could explain the multiple UTS he has off and on Without any abnormal test except he does have trace blood in the urine each time , but he denies any gross blood LUTS: DYSURIA: yes URGENCY: Yes FREQUENCY:4 per day NOCTURIA: 2 per night STRAINING TO VOID: Yes EMPTIES COMPLETELY: Yes UTI: No GROSS HEMATURIA: no MICROSCOPIC HEMATURIA: no UA DIPSTICK POSITIVE ONLY: yes Other symptoms: ED - yes LABS: No results found for: HCT PSA (ng/mL) Date Value 10/21/2020 1.01 No results found for: TESTOST MEDICATIONS: omeprazole (PRILOSEC) 20 mg capsule Take 1 capsule by mouth once daily. (Patient not taking: Reported on 10/15/2020 ) hyoscyamine sublingual (LEVSIN SL) 0.125 mg subl Dissolve 1 tablet under the tongue four times daily as needed (abdominal pain). (Patient not taking: Reported on 10/15/2020 ) PAST MEDICAL HISTORY: PAST MEDICAL HISTORY Diagnosis Date NEGATIVE MEDICAL HISTORY TB,PN,DM,CA,Heart Dis PAST SURGICAL HISTORY: PAST SURGICAL HISTORY Procedure Laterality Date COLONOSCOPY 03/09/13 ESOPHAGOGASTRODUODENOSCOPY TRANSORAL DIAGNOSTIC 05/01/2019 EGD SIGMOIDOSCOPY FLX DX W/COLLJ SPEC BR/WA IF PFRMD 10/30/2011 Sigmoidoscopy, flexible FAMILY HISTORY: FAMILY HISTORY Problem Relation Age of Onset Heart Mother None Father Colon Cancer No Family History or colon polyps SOCIAL HISTORY: Social Connections: Not on file REVIEW OF SYSTEMS: GENERAL: No fever, chills, weight loss, or fatigue. All other systems reviewed and are negative PHYSICAL EXAMINATION: There were no vitals taken for this visit. GENERAL: WNL nutrition, no deformities, healthy appearing NEURO: Awake, alert and oriented x 3 and Normal gait PSYCH: No signs of depression, anxiety, or agitation ENMT (Ear, Nose, Mouth, Throat): No masses, adenopathy, icterus. Thyroid nonpalpable RESP: NL effort, no retractions or purse-lip breathing. CV: No extremity swelling, varices, edema, pallor, erythema GASTROINTESTINAL: Soft, nontender, nondistended, no masses. HERNIAS: None SKIN: No rash, lesions No palpable lymphadenopathy MUSCULOSKELETAL: Extremities normal. No deformities, edema, clubbing or skin discoloration. GENITOURINARY: MALE EXAM: Rectal Exam: Benign\ Bilateral Pelvic Floor Spasms - no trigger points PROBLEM LIST REVIEW: Yes LABS: Results for orders placed or performed in visit on 03/16/22 UA DIP, URINE (POC) Result Value Ref Range GLUCOSE UA (POCT) Negative Negative mg/dL BILIRUBIN UA (POCT) Negative Negative KETONE UA (POCT) Negative Negative mg/dL SPECIFIC GRAVITY UA (POCT) 1.020 1.005 - 1.030 HEMOGLOBIN/BLOOD UA (POCT) Trace-intact (A) Negative PH UA (POCT) 7.0 4.5 - 8.0 PROTEIN UA (POCT) Negative Negative mg/dL UROBILINOGEN UA (POCT) 0.2 Normal E.U./dL NITRITE UA (POCT) Negative Negative LEUKOCYTES UA (POCT) Negative Negative COLOR UA (POCT) Yellow CLARITY UA (POCT) Clear PROCEDURES: PVR: 0 ml IMAGING: IMPRESSION/PLAN: 41 year old male with 1. 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 Screening for genitourinary condition - ICD9: V81.6, ICD10: Z13.89 - UA DIP, URINE (POC) > Discussed Pelvic Floor Spasm and the number of symptom he has and would like to get a PFPT evaluation > 3 mo. Appt w/ DREA Gonzalez MT, PA-C for Follow-up after PFPT DREA Mayer MT, PA-C documented in this encounter [facility] 10-21-2020 History of Presen t illness Narrative Radiology Service Progress Note PATIENT NAME: Kaiser Ring DATE OF SERVICE: October 21, 2020 TIME: 2:12 PM PATIENT IDENTITY VERIFICATION COMPLETED USING TWO (2) IDENTIFIERS: Name and Date of confirmed by patient verbally. FALL SCREENING: Has the patient had 2 falls in the last year or 1 fall with injury or currently using an Ambulatory Assistive Device (Walker, Cane, Wheelchair, Crutches, etc.)? No PATIENT GENDER DATA: Male PATIENT RELEVANT IMPLANT DATA REVIEWED: Not Applicable RADIOLOGY DEPARTMENT: Ultrasound renals PERIPHERAL IV DATA: Not applicable SIGNED BY: Edgard Haque October 21, 2020 2:12 PM documented in this encounter [facility] 10-21-2020 Miscellaneous Notes Normal US Kidneys and Bladder. No new orders. Celina Pringle APRN.CNP documented in this encounter [facility] 05-05-2019 History of Presen t illness Narrative Awake and alert. Tolerating oral fluids well. Denies nausea. Timeout performed prior to regional block procedure. Dr Yen in attendance. Arrived to [facility] with his , Eri [phone], for surgery today with Dr. Martinez on his left shoulder. Reviewed things for a better recovery. documented in this encounter [facility] Work Phone: 05-05-2019 Hospital Discharg Julianne Serra PA - 05/05/2019 Keep operative splint/dressing on, clean, and dry until follow up appointment in 1-2 weeks. Elevate and Ice for pain control. Encourage range of motion of index finger, long finger, ring finger, little finger, thumb in splint/dressing with goal of touching finger tips to splint material/dressing in palm by initial post op appointment. Non weight bearing in operative extremity. OK to discontinue sling once the nerve block has worn off and sensation as well as motor function has returned to your arm. This takes up to 24-48 hours. documented in this encounter [facility] Work Phone: documented in this encounter [facility] Work Phone: Evaluation note* Diagnosis Spastic pelvic floor syndrome- Primary Other symptoms involving digestive system Screening for genitourinary condition Screening for other and unspecified genitourinary condition documented in this encounter [facility] note* Diagnosis Spastic pelvic floor syndrome Other symptoms involving digestive system documented in this encounter [facility] note* Diagnosis Hand foot and mouth disease- Primary [facility] [place] [facility]* Diagnosis Gastroesophageal reflux disease, unspecified whether esophagitis present- Primary Rectal bleeding Hemorrhage of rectum and anus documented in this encounter [facility] note* Diagnosis Urinary frequency documented in this encounter [facility] note* Diagnosis Gastroesophageal reflux disease, unspecified whether esophagitis present- Primary Bloating Flatulence, eructation, and gas pain documented in this encounter [facility] for referral (narrative)* - Pending Review Specialty Diagnoses / Procedures Referred By Ban marie Referred To Contact Physical Therapy Diagnoses Spastic pelvic floor syndrome Procedures CONSULT TO PHYSICAL THERAPY Sonja Aceves PA-C [address] [place] [address] Referral ID Status Reason Start Date Expiration Date V isits Requested Visits Authorized [id number] Pending Review 03/23/2022 06/21/2022 1 1 [facility] for referral (narrative)* Outpatient Procedure (Routine) - Pending Review Specialty Diagnoses / Procedures Referred By Ban marie Referred To Contact [facility] Diagnoses Gastroesophageal reflux disease, unspecified whether esophagitis present Bloating Procedures EGD DIAGNOSTIC ESOPHAGOGASTRODUODENOSC OPY TRANSORAL DIAGNOSTIC Eri Llamas PA-C [address] [place] [address] [facility] [address] [place] [address] Referral ID Status Reason Start Date Expiration Date Visits Requested Visits Authorized [id number] Pending Review Auto-Generat ed Referral 05/27/2023 05/27/2024 1 1 Healthcare Summary Purpose Family History No Family History Records FoundNo Family History Records FoundNo Family History Records Found Advance Directives No Advanced Directives Records FoundDocuments on File Type Date Recorded 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 [address] [facility] [address] [place] [address] [facility] [place] [address] [place] [address] Referral ID Status Reason Start Date Expiration Date Visits Requested Visits Authorized [id number] Pending Review PCP Requested Referral Auto-Generate d Referral 2 06/29/2022 1 1 Additional Source Comments (unrecognized sect ion and content) No Status Records FoundNo Status Records FoundNo Status Records Found INFORMATION SOURCE (unrecogn ized section and content) DATE CREATED AUTHOR AUTHOR'S ORGANIZ ATION 07/29/2022 [facility] DATE CREATED AUTHOR AUTHOR'S ORGANIZ ATION 06/04/2023 [facility] Source Comments (unrecognize d section and content) In the event this informatio n is protected by the Federal Confidentiality of Alcohol and Drug Abuse Patient Records regulations: The Federal rules restrict any use of the information to criminally investigate or prosecute any alcohol or drug abuse patient.[facility] Health[facility] the event this information is protected by the Federal Confidentiality of Alcohol and Drug Abuse Patient Records regulations: The Federal rules restrict any use of the information to criminally investigate or prosecute any alcohol or drug abuse patient.[facility] HealthIn the event this information is protected by the Federal Confidentiality of Alcohol and Drug Abuse Patient Records regulations: The Federal rules restrict any use of the information to criminally investigate or prosecute any alcohol or drug abuse patient.[facility] HealthIn the event this information is protected by the Federal Confidentiality of Alcohol and Drug Abuse Patient Records regulations: The Federal rules restrict any use of the information to criminally investigate or prosecute any alcohol or drug abuse patient.[facility] HealthIn the event this information is protected by the Federal Confidentiality of Alcohol and Drug Abuse Patient Records regulations: The Federal rules restrict any use of the information to criminally investigate or prosecute any alcohol or drug abuse patient.[facility] HealthIn the event this information is protected by the Federal Confidentiality of Alcohol and Drug Abuse Patient Records regulations: The Federal rules restrict any use of the information to criminally investigate or prosecute any alcohol or drug abuse patient.[facility] Reason for Visit (unrecogniz ed section and content) Reason Comments PT Eval Specialty Diagnoses / Procedures Referred By Ban marie Referred To Contact Physical Therapy / PHYSICAL THERAPY Diagnoses Spastic pelvic floor syndrome Procedures CONSULT TO PHYSICAL THERAPY Sonja Aceves PA-C [address] [place] [address] [facility] [address] [place] [address] Referral ID Status Reason Start Date Expiration Date V isits Requested Visits Authorized [id number] Authorized 03/23/2022 04/04/2023 21 21 Reason Comments Rash Exposure to HFM Reason Comments Rectal Bleeding Reason Comments GERD Care Teams (unrecognized sec tion and content) Ostrich Farmer Relationship Specialty Start Date End Date Rudy Moran MD PCP - General 08/16/06 Ostrich Farmer Relationship Specialty Start Date End Date Rudy Moran MD PCP - General 08/16/06 Ostrich Farmer Relationship Specialty Start Date End Date Rudy Moran MD PCP - General 08/16/06 12/29/22 FOR RECORDS PERTAINING TO PATIENTS WHO ARE OR HAVE BEEN ENROLLED IN A CHEMICAL DEPENDENCY/SUBSTANCEABUSE PROGRAM, SOME INFORMATION MAY BE OMITTED. This clinical summary was aggregated from multiple sources. Caution should be exercised in using it in the provision of clinical care. This summary normalizes information from multiple sources, and as a consequence, information in this document may materially change the coding, format and clinical context of patient data. In addition, data may be omitted in some cases. CLINICAL DECISIONS SHOULD BE BASED ON THE PRIMARY CLINICAL RECORDS. [facility]. provides no warranty or guarantee of the accuracy or completeness of information in this document.
[2023-06-15 04:04] VITALS: BP 116/72; PULSE 86; RESP 16; TEMP 36.6; O2SAT 99
== END 2023-06-15 04:07 | disposition home or self-care (01) ==
PROVIDERS: Emergency Provider Emergency Medicine; PCP Family Medicine; Visit Provider Emergency Medicine
DX: K52.9 Noninfective gastroenteritis and colitis, unspecified (principal); K21.9 Gastro-esophageal reflux disease without esophagitis; Z79.899 Other long term (current) drug therapy
CPT/HCPCS: 80048; 80076; 83690; 85025; 96361; 96374; 99283; A4216; J2405

== ENCOUNTER → 2023-08-12 | Outpatient (CLI) | payer BC, SELFPAY ==
--- NOTE | 2023-08-12 07:45 | RAD_ITS ---
STUDY: AIR CONTRAST ESOPHAGRAM AND UPPER GI SERIES REASON FOR EXAM: Male, 42 years old. K21.9 - Gastro-esophageal reflux disease without esophagitis FLUOROSCOPY TIME (if supplied): (59 seconds) minutes/seconds. 26.25 mGy. 19 images were obtained. TECHNIQUE: SINGLE CONTRAST AND AIR CONTRAST FLUOROSCOPIC IMAGES. COMPARISON: None. FINDINGS: The cervical esophagus demonstrates normal motility without aspiration. There is no stricture or extrinsic mass effect. No intraluminal polypoid mass is identified. The thoracic esophagus distends well without stricture or mucosal fold thickening. No mucosal ulcerations are identified. There is no extrinsic mass effect. There are no diverticula. No hiatal hernia or gastroesophageal reflux was identified. The patient ingested a 12 mm tablet of barium without any difficulty. The stomach distends well without mucosal fold thickening or mucosal ulceration. There is no intraluminal mass. The duodenal bulb is freely distensible without deformity or ulceration. The duodenal sweep is normal in position and caliber. RAD/Upper GI w/BA Swallow IMPRESSION: Normal air-contrast esophagram and upper chest series. The patient ingested a 12 mm tablet of barium without any difficulty. Electronically Signed: Joseph Garcai MD at 14:36 EDT ,
== END | disposition home or self-care (01) ==
LOC: RAD 07:43
PROVIDERS: PCP Family Medicine; Referring Provider Surgery; Visit Provider Surgery
DX: K21.9 Gastro-esophageal reflux disease without esophagitis (principal)
CPT/HCPCS: 74246

== ENCOUNTER 2023-08-13 07:16 | Day surgery (SDC) | payer BC, SELFPAY ==
[2023-08-13 07:40] VITALS: BP 114/63; PULSE 72; RESP 18; TEMP 36.9; O2SAT 99
[2023-08-13] MEDS: Lidocaine Jelly 2% 20 ML Syringe (URO-JET) 1 APPLIC (07:40)
== END 2023-08-13 23:59 | disposition home or self-care (01) ==
LOC: SDC 07:16
PROVIDERS: PCP Family Medicine; Referring Provider Family Medicine; Visit Provider Surgery
PROC: F00ZJWZ Instrumental Swallowing and Oral Function Assessment using Swallowing Equipment (ICD-10-PCS; CPT 43235; principal; 2023-08-13 07:25)
DX: K21.9 Gastro-esophageal reflux disease without esophagitis (principal)
CPT/HCPCS: 91010

== ENCOUNTER 2023-08-17 07:10 | Day surgery (SDC) | payer BC, SELFPAY ==
--- NOTE | 2023-08-16 | GASB_PTH ---
PATIENT: MANUEL RING LOC: EN U#:[id number] AGE/SX: 42/M ROOM: RE08/17/[address]: Dr. Edilberto Angela MD : 1980 BED: DIS: 08/17/2023 SPEC #: [id number] RECD: 08/17/23 11:01 STATUS: MADELINE JOSE ROBERTO #: [id number] PRESTON: 08/16/23 00:[address]: Edilberto Angela DEPT: SURGICAL PATHOLOGY RECD BY: Ziggy Topete ENTERED: 08/17/23 11:03 SP TYPE: Gastric Bx OTHR DR: Dr. Sim White MD Tissues: A - Duodenum, NOS B - Gastric mucous membrane C - Gastric mucous membrane D - Stomach, NOS E - Stomach, NOS F - Stomach, NOS G - Gastric mucous membrane H - Esophageal mucous membrane I - Esophageal mucous membrane Procedures: Special Stain Group II Surgery Specimen Level IV Alcian Blue/PAS (control) HEADER OPERATION: EGD- ph probe and gastric mapping (biopsy) PRE-OP DIAGNOSIS: GERD TISSUE SUBMITTED: A- Duodenum biopsy, B- Antrum lesser curvature biopsy, C- Antrum greater curvature biopsy, D- Angularis biopsy, E- Body greater curvature, F- Body lesser curvature biopsy, G- Cardia biopsy, H- Distal esophagus biopsy, I- Mid esophagus biopsy MICROSCOPIC DIAGNOSIS A. Duodenum, biopsy: Mild non specific chronic inflammation. Changes suggested of Wai's gland hyperplasia. B. Gastric antrum, lesser curvature, biopsy: Chronic gastritis. C. Gastric antrum, greater curvature, biopsy: Chronic gastritis. D. Angularis, biopsy: Chronic gastritis. E. Gastric body, greater curvature, biopsy: Chronic gastritis. F. Body lesser curvature, biopsy: Chronic gastritis. G. Gastric cardia, biopsy: Chronic gastritis. H. Distal esophagus, biopsy: Fragments of squamous mucosa with no significant pathologic change. No evidence of goblet cell metaplasia. See comment. I. Mid esophagus, biopsy: No pathologic change. / 08/18/2023 COMMENT B&C. The results of immunohistochemistry for Helicobacter pylori will be reported separately ([id number]). H. Alcian blue/PAS stain with matched control supports the above diagnosis. MICROSCOPIC DESCRIPTION Slides are reviewed. GROSS DESCRIPTION A. Received in fixative is one container labeled with the patient's name and designated Duodenum biopsy. The specimen consists of multiple irregular fragments of light hudson soft tissue that in aggregate measure 0.8 x 0.8 x 0.1 cm. The specimen is totally submitted in one cassette. B. Received in fixative is one container labeled with the patient's name and designated Antrum lesser curvature biopsy. The specimen consists of one irregular fragment of light hudson soft tissue that measures 0.4 x 0.4 x 0.1 cm. The specimen is totally submitted in one cassette. C. Received in fixative is one container labeled with the patient's name and designated Antrum greater curvature biopsy. The specimen consists of one irregular fragment of light hudson soft tissue that measures 0.3 x 0.3 x 0.1 cm. The specimen is totally submitted in one cassette. D. Received in fixative is one container labeled with the patient's name and designated Angularis biopsy. The specimen consists of one irregular fragment of light hudson soft tissue that measures 0.3 x 0.3 x 0.1 cm. The specimen is totally submitted in one cassette. E. Received in fixative is one container labeled with the patient's name and designated Body greater curvature biopsy. The specimen consists of one irregular fragment of light hudson soft tissue that measures 0.8 x 0.2 x 0.1 cm. The specimen is totally submitted in one cassette. F. Received in fixative is one container labeled with the patient's name and designated Body lesser curvature biopsy. The specimen consists of one irregular fragment of light hudson soft tissue that measures 0.8 x 0.3 x 0.1 cm. The specimen is totally submitted in one cassette. G. Received in fixative is one container labeled with the patient's name and designated Cardia biopsy. The specimen consists of one irregular fragment of light hudson soft tissue that measures 0.5 x 0.5 x 0.1 cm. The specimen is totally submitted in one cassette. H. Received in fixative is one container labeled with the patient's name and designated Distal esophagus biopsy. The specimen consists of multiple irregular fragments of light hudson soft tissue that in aggregate measure 0.6 x 0.2 x 0.1 cm. The specimen is totally submitted in one cassette. I. Received in fixative is one container labeled with the patient's name and designated Mid esophagus biopsy. The specimen consists of one irregular fragment of light hudson soft tissue that measures 0.3 x 0.2 x 0.1 cm. The specimen is totally submitted in one cassette. ZACH/ 08/17/23 TC:3 CPT:86870x8,87395
[2023-08-17] VITALS (7 sets, daily range): BP systolic 86–105; BP diastolic 56–76; PULSE 52–67; RESP 16; TEMP 36.1–36.5; O2SAT 96–100; BMI 23.8
--- NOTE | 2023-08-17 07:30 | PCM.HP.BLA ---
History and Physical Date of Admission: 08/17/23 Visit Reasons: Gastroesophageal reflux disease (GERD) Chief Complaint: GERD Batch Blender Required: No Is patient in pain?: No Allergies No Known Allergies Allergy (Verified 08/09/23 14:37) Medications omeprazole 40 mg capsule,delayed release 40 mg PO DAILY 06/15/23 [History Confirmed 08/09/23] ondansetron 4 mg disintegrating tablet 4 mg PO Q6H PRN PRN Nausea #15 tabs 06/15/23 [Rx Confirmed 08/09/23] PFSH Medical History GERD (gastroesophageal reflux disease) Social History Smoking Status: Never smoker alcohol intake: never substance use type: does not use HPI HPI HPI: 42-year-old gentleman is being referred by Dr Sim White for surgical consultation regarding reflux disease and a written copy my surgical consult recommendations will return to him. Dr. Nida Gant has assisted the patient. My reports an upper endoscopy before June 18, 2023 showed reactive gastropathy with associated focal intestinal metaplasia. H. pylori was negative. Esophageal junction biopsies showed no evidence of intestinal metaplasia or dysplasia. Mid esophageal biopsies showed no eosinophils. The op report of the EGD performed for reflux disease suggested that the duodenum appeared normal. There is felt to be some mild erythema of the antrum. A medium sized hiatal hernia was present. The patient presents today to have ongoing discussion regarding his treatment options. He chews gum constantly to try to keep the reflux down. Sometimes he has trouble swallowing foods particularly in the morning he feels like he has to force them down. He does not feel that omeprazole 40 mg daily is being effective in treating his reflux. He has elevated the head of his bed. He says he almost taste the naima like taste in his mouth. He is concerned about the diagnosis of intestinal metaplasia. He works in [employer] at [employer] General General: Yes weight change HEENT HEENT: Yes difficulty swallowing; No eye injury, eye surgery, swollen glands or hoarseness Endo Endocrine: No thyroid disease, diabetes mellitus, thyroid cancer, Hair loss, heat intolerance or cold intolerance Skin Skin: No rash or changing moles Musc Musculoskeletal: No back problems, arthritis, rheumatoid arthritis, gout or joint pain Cardio Cardiovascular: No murmur, pacemaker, heart disease, atrial fibrillation, high blood pressure, heart attack, heart stent, palpitations, shortness of breat with exertion or chest pain Psych Psychiatric: No depression, anxiety or hearing voices Resp Respiratory: No shortness of breath, No sleep apnea, No cough, No COPD, No asthma, No emphysema and No wheezing Gastro Gastrointestinal: No abdominal pain, No nausea or vomiting, No diarrhea, Yes constipation, No blood in stool, Yes acid reflux, No hemorrhoids, No ulcers, No gallbladder problem and No black,tarry stools Abhijit Hematologic: No blood thinners, No blood disorders, No bleeding, No anemia and No blood clots Neuro Neurologic: No numbness and No tingling Exam Const General: cooperative, healthy appearing and comfortable [facility] Head: normal to inspection Eyes General: appearance normal, both eyes and all related structures Neck Neck: normal visual inspection Chest Chest palpation & inspection: normal inspection of the chest Resp Effort & Inspection: normal respiratory effort Auscultation: clear to auscultation bilaterally Cardio Rate: regular rate Rhythm: regular rhythm GI Palpation: soft and no hepatosplenomegaly Musc Cervical Spine: normal cervical lordosis Skin General: no rashes or lesions noted Neuro General: patient alert, patient awake and patient oriented x3 Extrem General: no calf tenderness Psych Appearance: grossly normal and well ket Assessment and Plan Assessment and Plan (1) GERD (gastroesophageal reflux disease): Status: Acute Qualifiers: Esophagitis presence: esophagitis presence not specified Qualified Code(s): K21.9 - Gastro-esophageal reflux disease without esophagitis Plan: Clinically the patient has symptoms that correlate extraordinarily well with esophageal reflux disease. I wonder whether his constant gum chewing and saliva production is overriding the acid reflux preventing esophagitis identified on biopsy. The fact however that omeprazole is incompletely treating his symptoms certainly is of interest. I do recommend that we have further preoperative evaluation before considering a surgical reflux procedure. Because of the intestinal metaplasia and the need to confirm reflux I propose for him a repeat esophagogastroduodenoscopy this time with Nolasco pH probe placement and gastric mapping because of the intestinal metaplasia. This would include biopsies of the antrum greater and lesser curves. Of the angularis. Body greater and lesser curves. Cardia. Duodenum as well as distal and mid esophagus. Placement of pre-H probe. I recommend to him that we obtain a barium swallow. I recommend to him that we obtain esophageal manometry. We will then have him return to the office to discuss potential for surgical reflux procedure. We briefly compared and contrasted laparoscopic toupet and laparoscopic Dayanara fundoplication's. He has had an initial opportunity to ask and have questions answered. I appreciate the opportunity of assisting with the surgical care Copy: Dr Sim Angela M.D., F.A.C.S. The patient had an upper GI contrast barium swallow. This appeared to be normal. No hiatal hernia noted. No reflux noted. We will proceed as noted with upper endoscopy and Nolasco pH probe placement. Edilberto Angela M.D., F.A.C.S.
[2023-08-17] MEDS: Lactated Ringers 1,000 ML 15 ML IV (07:37)
--- NOTE | 2023-08-17 08:30 | IMM_PTH ---
PATIENT: MANUEL RING LOC: EN U#:[id number] AGE/SX: 42/M ROOM: RE08/17/[address]: Dr. Edilberto Angela MD : 1980 BED: DIS: 08/17/2023 SPEC #: [id number] RECD: 08/18/23 09:31 STATUS: MADELINE REFaith #: [id number] PRESTON: 08/17/23 08:[address]: Edilberto Angela DEPT: IMMUNOHISTOCHEMISTRY RECD BY: Martir Mercedes ENTERED: 08/18/23 09:32 SP TYPE: IMMUNO OTHR DR: Dr. Sim White MD Tissues: B - Stomach, NOS C - Stomach, NOS Procedures: H Pylori (initial) H.PYLORI (add) PHYSICIAN & INSTITUTION [place] [id number] SPECIMEN INFORMATION: Tissue Source: B- Antrum lesser curvature biopsy, C- Antrum greater curvature biopsy Clinical Info: GERD Specimen Number: [id number] B&C CPT code: 12400,99360 METHODOLOGY: Deparaffinized sections of prefer/formalin-fixed tissue or PAP/DQ stained slides are incubated with monoclonal/polyclonal antibodies/oligonucleotide probes. Localization is made via biotin free immunoperoxidase method. Appropriate controls are performed and reacted as expected. Results on target cell population are indicated in the following table: RESULTS: ANTIBODY / CLONE RESULT Block B H Pylori (polyclonal) negative Block C H Pylori (polyclonal) negative These tests were developed and their performance characteristics determined by [facility]. They may not have been cleared or approved by the U.S. Food and Drug Administration. The FDA has determined that such clearance or approval is not necessary. The above immunohistochemical/dualISH markers are ordered and reviewed by the Pathologist. INTERPRETATION: B. Antrum lesser curvature, biopsy: Negative for Helicobacter pylori organisms. C. Antrum greater curvature, biopsy: Negative for Helicobacter pylori organisms. AM/ 08/18/2023
--- NOTE | 2023-08-17 09:33 | OP.CCLET_ITS ---
08/17/2023 Sim White [address] [place] [address] Re : Upper GI endoscopy procedure for [facility] Dear Dr. White This procedure was performed on Thursday, August 17, 2023. My impressions and recommendations are as follows: Impressions : - Normal mid esophagus. Biopsied. - Z-line regular, 46 cm from the incisors. Biopsied. - 1 cm hiatal hernia. - Chronic gastritis. Antrum, greater and lesser curves Biopsied. - Normal incisura. Biopsied. - Normal greater curvature of the stomach. Biopsied. - Normal lesser curvature of the stomach. Biopsied. - Normal greater curvature of the gastric body. Biopsied. - Normal lesser curvature of the gastric body. - Normal cardia. Biopsied. - Normal examined duodenum. Biopsied. Recommendations : - Discharge patient to home. - Resume previous diet. - Continue present medications except no omeprazole. - Return to my office in 1 week. My findings are described in the full procedure note, which is enclosed. If I can be of further assistance, please feel free to contact me at Doctor phone number(s): Work: . Sincerely, Edilberto Angela MD 08/17/2023 9:32:30 AM This report has been signed electronically.
--- NOTE | 2023-08-17 09:33 | OP.EGD_ITS ---
Patient Name: Kaiser Nguyen Procedure Date: 08/17/2023 8:58 AM Date of : 1980 Age: 42 Procedure: Upper GI endoscopy Indications: Suspected gastro-esophageal reflux disease Providers: Edilberto Angela MD Referring MD: Sim White Medicines: See the Anesthesia note for documentation of the administered medications Complications: No immediate complications. Procedure: Pre-Anesthesia Assessment: - Prior to the procedure, a History and Physical was performed, and patient medications and allergies were reviewed. The patient's tolerance of previous anesthesia was also reviewed. The risks and benefits of the procedure and the sedation options and risks were discussed with the patient. All questions were answered, and informed consent was obtained. Prior Anticoagulants: The patient has taken no anticoagulant or antiplatelet agents. ASA Grade Assessment: I - A normal, healthy patient. After reviewing the risks and benefits, the patient was deemed in satisfactory condition to undergo the procedure. After obtaining informed consent, the endoscope was passed under direct vision. Throughout the procedure, the patient's blood pressure, pulse, and oxygen saturations were monitored continuously. The Endoscope was introduced through the mouth, and advanced to the second part of duodenum. The upper GI endoscopy was accomplished without difficulty. The patient tolerated the procedure well. Scope In: 9:07:20 AM Scope Out: 9:19:59 AM Total Procedure Duration Time 0 hours 12 minutes 39 seconds Findings: The mid esophagus was normal. Biopsies were taken with a cold forceps for histology. The Z-line was regular and was found 46 cm from the incisors. Biopsies were taken with a cold forceps for histology. A 1 cm hiatal hernia was present. Diffuse minimal inflammation was found in the gastric antrum. Biopsies were taken with a cold forceps for histology. The incisura was normal. Biopsies were taken with a cold forceps for histology. The greater curvature of the stomach was normal. Biopsies were taken with a cold forceps for histology. The lesser curvature of the stomach was normal. Biopsies were taken with a cold forceps for histology. The greater curvature of the gastric body was normal. Biopsies were taken with a cold forceps for histology. The lesser curvature of the gastric body was normal. The cardia was normal. Biopsies were taken with a cold forceps for histology. The examined duodenum was normal. Biopsies were taken with a cold forceps for histology. The [employer] capsule with delivery system was introduced through the mouth and advanced into the esophagus, such that the PAL pH capsule was positioned 40 cm from the incisors, which was 6 cm proximal to the GE junction. The PAL pH capsule was then deployed and attached to the esophageal mucosa. The delivery system was then withdrawn. Endoscopy was utilized for probe placement and diagnostic evaluation. Impression: - Normal mid esophagus. Biopsied. - Z-line regular, 46 cm from the incisors. Biopsied. - 1 cm hiatal hernia. - Chronic gastritis. Antrum, greater and lesser curves Biopsied. - Normal incisura. Biopsied. - Normal greater curvature of the stomach. Biopsied. - Normal lesser curvature of the stomach. Biopsied. - Normal greater curvature of the gastric body. Biopsied. - Normal lesser curvature of the gastric body. - Normal cardia. Biopsied. - Normal examined duodenum. Biopsied. Recommendation: - Discharge patient to home. - Resume previous diet. - Continue present medications except no omeprazole. - Return to my office in 1 week. Procedure Code(s): --- Professional --- 64416, Esophagogastroduodenoscopy, flexible, transoral; with biopsy, single or multiple 22410, Esophagus, gastroesophageal reflux test; with mucosal attached telemetry pH electrode placement, recording, analysis and interpretation CPT copyright 2021 [employer]. All rights reserved. The codes documented in this report are preliminary and upon construction field engineer review may be revised to meet current compliance requirements. Edilberto Angela MD 08/17/2023 9:32:30 AM This report has been signed electronically. Number of Addenda: 0 Note Initiated On: 08/17/2023 8:58 AM
== END 2023-08-17 10:14 | disposition home or self-care (01) ==
LOC: EN 07:11 → AC 07:12
PROVIDERS: PCP Family Medicine; Referring Provider Family Medicine; Visit Provider Surgery
PROC: (CPT 43235; principal; 2023-08-17 08:25)
DX: K21.9 Gastro-esophageal reflux disease without esophagitis (principal); K29.50 Unspecified chronic gastritis without bleeding; K44.9 Diaphragmatic hernia without obstruction or gangrene; Z79.899 Other long term (current) drug therapy; K29.80 Duodenitis without bleeding
CPT/HCPCS: 43239; 88305; 88313; 88341; 88342; J7120; J2405

== ENCOUNTER → 2023-11-15 | Outpatient (CLI) | payer BC, SELFPAY | END | disposition home or self-care (01) | PROVIDERS: PCP Family Medicine; Referring Provider Otolaryngology Otolaryngology/Facial Plastic Surgery; Visit Provider Otolaryngology Otolaryngology/Facial Plastic Surgery | DX: J32.9 Chronic sinusitis, unspecified (principal) | CPT/HCPCS: 87070; 87205 ==

== ENCOUNTER → 2025-03-27 | Outpatient (CLI) | payer BC, SELFPAY ==
--- NOTE | 2025-03-27 10:08 | RAD_ITS ---
PROCEDURE: NECK FOR SOFT TISSUE 03/27/2025 REASON FOR EXAM: PAIN TECHNIQUE: Procedure Code: RADNE Modality: DX Procedure: NECK FOR SOFT TISSUE COMPARISON: None. FINDINGS: No soft tissue abnormalities. The airways are clear. No acute bony abnormalities. The disc levels are within normal limits. RAD/Neck for Soft Tissue IMPRESSION: Unremarkable without acute findings. Reading Location: [id number]
[2025-03-27 12:24] LABS: Hematocrit 42.9 % (40-54); Hemoglobin 13.5 g/dL (13.0-16.5); Mean Corp Hgb Conc 31.5 g/dL (32-36); Mean Corpuscular Volume 82.8 fL (80-94); Mean Platelet Vol. 10.1 fl (6.2-12.0); Platelet Count 250 K/mm3 (150-450); RBC Distribution Width CV 13.7 % (11.6-14.6); RBC Distribution Width SD 41.3 fl (35.1-43.9); Red Blood Count 5.18 M/mm3 (4.6-6.2); White Blood Count 6.8 K/mm3 (4.4-11.0)
[2025-03-27 13:26] LABS: AST(SGOT) 20 U/L (<=37); Alanine Aminotransfer ALT/SGPT 19 U/L (<=46); Albumin, Serum 4.6 g/dL (3.5-5.0); Alkaline Phosphatase 92 U/L (40-129); Anion Gap 14 (7-18); BUN 17 mg/dL (4-19); BUN/Creat Ratio 17.8 RATIO (10-20); Calcium,Total 9.7 mg/dL (7.6-11.0); Carbon Dioxide 23.9 mmol/L (20.0-29.0); Chloride 102 mmol/L (96-106); Globulin 2.8 g/dL (2.2-4.2); Glucose 83 mg/dL (70-99); Potassium 3.9 mmol/L (3.5-5.1)
[2025-03-28 13:08] LABS: ANTINUCLEAR ANTIBODIES DIRECT Negative (Negative)
[2025-04-01 16:08] LABS: Vitamin B1, Thiamine 79.5 nmol/L (66.5-200.0)
== END | disposition home or self-care (01) ==
LOC: MTLAB 10:08
PROVIDERS: PCP Family Medicine; Referring Provider Family Medicine; Visit Provider Family Medicine
DX: M54.2 Cervicalgia (principal); G62.9 Polyneuropathy, unspecified
CPT/HCPCS: 36415; 70360; 80053; 84100; 84425; 84443; 85027; 86038